=== PATIENT | male | born 1930 | race Caucasian/White ===

== ENCOUNTER → 2016-11-12 | Outpatient (CLI) | payer OTHER, MEDICARE ==
[~2016-11-12] MED LIST: ATOR10TA88 PO; CARV25TA2 PO; CHOLTAB3 PO; DIGO0.1267 PO; FURO40TA3 PO; LSN20 PO; WARF3TAB6 PO; WARF4TAB43 PO; [UNRECOGNIZED DRUG - CODE] PO
--- NOTE | 2016-11-12 10:37 | DIAGNOSTIC IMAGING REPORT ---
CHEST 2 VIEWS ROUTINE CLINICAL HISTORY: COUGH, SCATTERED RHONCHI RT LUNG COMPARISON STUDY: 12/22/2014 FINDINGS: The heart is enlarged. There is a left subclavian pacer/defibrillator present. There is no failure. There is no focal pulmonary consolidation. A nodule at the right lung base is felt to represent nipple shadow. There are no pleural effusions.[ IMPRESSION: Cardiomegaly. No acute findings. Electronically signed by: Tony Adkins M.D. 11/12/2016 10:35 AM Dictated Date/Time: 11/12/2016 10:34 AM
== END | disposition home or self-care (01) ==
LOC: C.RADBBURG 10:26
PROVIDERS: ATTEND Physician Assistant Medical
DX: R05 Cough (principal); R09.89 Other specified symptoms and signs involving the circulatory and respiratory systems; I51.7 Cardiomegaly

== ENCOUNTER → 2017-08-22 | Outpatient (CLI) | payer OTHER, MEDICARE ==
[~2017-08-22] MED LIST changes: +ATOR10TA82 PO; -ATOR10TA88 PO
[2017-08-22 17:30] LABS: BASO % 0.6 %; BASO ABS # 0.03 K/uL (0-0.2); EOS % 2.5 %; EOS ABS # 0.13 K/uL (0-0.5); HEMOGLOBIN 13.2 g/dL (14.0-18.0); IG# 0.01 K/uL (0.00-0.02); LYMPH % 22.1 %; LYMPH ABS # 1.15 K/uL (1.2-3.4); MEAN CELL VOLUME 95.9 fL (80-100); MEAN CORPUSCULAR HEMOGLOBIN 31.7 pg (25-34); MEAN PLATELET VOLUME 11.3 fL (7.4-10.4); MONO ABS # 0.47 K/uL (0.11-0.59); NEUT % 65.6 %; NEUT ABS # 3.41 K/uL (1.4-6.5); PLATELET COUNT 152 K/uL (130-400); RED CELL DISTRIBUTION WIDTH CV 13.1 % (11.5-14.5); RED CELL DISTRIBUTION WIDTH SD 45.6 fL (36.4-46.3)
[2017-08-22 18:57] LABS: ALBUMIN 4.1 gm/dl (3.4-5.0); ALT/SGPT 33 U/L (12-78); AST/SGOT 29 U/L (15-37); BLOOD UREA NITROGEN 33 mg/dl (7-18); CALCIUM 9.6 mg/dl (8.5-10.1); CARBON DIOXIDE 31 mmol/L (21-32); CREATININE 1.56 mg/dl (0.60-1.40); GLUCOSE 92 mg/dl (70-99); POTASSIUM 4.4 mmol/L (3.5-5.1); SODIUM 138 mmol/L (136-145)
[2017-08-22 19:08] LABS: ALKALINE PHOSPHATASE 115 U/L (45-117); TOTAL PROTEIN 7.6 gm/dl (6.4-8.2)
== END | disposition home or self-care (01) ==
LOC: C.LABBC 15:05
PROVIDERS: ATTEND Internal Medicine
DX: I25.10 Atherosclerotic heart disease of native coronary artery without angina pectoris (principal); I42.9 Cardiomyopathy, unspecified; E78.5 Hyperlipidemia, unspecified; G31.84 Mild cognitive impairment of uncertain or unknown etiology; I10 Essential (primary) hypertension; Z79.01 Long term (current) use of anticoagulants; Z95.810 Presence of automatic (implantable) cardiac defibrillator; E55.9 Vitamin D deficiency, unspecified; D64.9 Anemia, unspecified

== ENCOUNTER → 2017-10-24 | Outpatient (CLI) | payer OTHER, MEDICARE ==
--- NOTE | 2017-10-24 18:13 | DIAGNOSTIC IMAGING REPORT ---
HEAD WITHOUT CONTRAST (CT) CLINICAL HISTORY: 87 years-old Male with N18.3 Chronic kidney disease, stage III (moderate)R41.3 Memory l. Acute infusion status post fall TECHNIQUE: Multiple axial CT images of the head were obtained without contrast. A dose lowering technique was utilized adhering to the principles of ALARA. CT DOSE: 537.48 mGy.cm COMPARISON: None. FINDINGS: No acute intracranial hemorrhage, midline shift, intracranial mass, hydrocephalus, territorial ischemia or abnormal extra-axial collection. Moderate cerebral and cerebellar atrophy with ex vacuo ventriculomegaly. Encephalomalacia of the left periventricular frontal lobe and basal ganglia with compensatory dilation of the frontal horn left lateral ventricle is compatible with remote infarction. Moderate ill-defined low-attenuation within the periventricular white matter is compatible with chronic microvascular ischemic changes. The calvarium is intact. The paranasal sinuses, mastoid air cells, and middle ear cavities are clear. Thinning of the optic lenses bilaterally. IMPRESSION: 1. No acute intracranial abnormality. 2. Encephalomalacia of the left periventricular frontal lobe and basal ganglia with compensatory dilation of the frontal horn left lateral ventricle is compatible with remote infarction. 3. Moderate atrophy with chronic microvascular ischemic changes The above report was generated using voice recognition software. It may contain grammatical, syntax or spelling errors. Electronically signed by: Guillermo Wilkins M.D. 10/24/2017 6:11 PM Dictated Date/Time: 10/24/2017 6:08 PM
[2017-10-24 18:19] LABS: BASO % 0.3 %; BASO ABS # 0.02 K/uL (0-0.2); EOS % 4.1 %; EOS ABS # 0.24 K/uL (0-0.5); HEMATOCRIT 38.5 % (42-52); HEMOGLOBIN 13.1 g/dL (14.0-18.0); IG# 0.01 K/uL (0.00-0.02); LYMPH % 18.9 %; MEAN CELL VOLUME 94.8 fL (80-100); MEAN CORPUSCULAR HEMOGLOBIN 32.3 pg (25-34); MEAN PLATELET VOLUME 10.4 fL (7.4-10.4); MONO % 11.9 %; MONO ABS # 0.69 K/uL (0.11-0.59); NEUT % 64.6 %; NEUT ABS # 3.76 K/uL (1.4-6.5); PLATELET COUNT 150 K/uL (130-400); WHITE BLOOD COUNT 5.82 K/uL (4.8-10.8)
[2017-10-24 18:47] LABS: ALT/SGPT 34 U/L (12-78); BLOOD UREA NITROGEN 40 mg/dl (7-18); CALCIUM 9.4 mg/dl (8.5-10.1); CARBON DIOXIDE 34 mmol/L (21-32); CREATININE 1.47 mg/dl (0.60-1.40); GLUCOSE 115 mg/dl (70-99); SODIUM 141 mmol/L (136-145)
[2017-10-24 20:33] LABS: TOTAL PROTEIN 7.3 gm/dl (6.4-8.2)
[2017-10-24 20:34] LABS: ALKALINE PHOSPHATASE 124 U/L (45-117); AST/SGOT 27 U/L (15-37)
== END | disposition home or self-care (01) ==
LOC: C.CTS 17:46
PROVIDERS: ATTEND Internal Medicine
DX: F44.89 Other dissociative and conversion disorders (principal); N18.3 Chronic kidney disease, stage 3 (moderate); R41.3 Other amnesia; Z86.73 Personal history of transient ischemic attack (TIA), and cerebral infarction without residual deficits; G93.89 Other specified disorders of brain; G31.9 Degenerative disease of nervous system, unspecified

== ENCOUNTER 2019-01-06 10:26 | Inpatient (IN) ==
[2019-01-06] MEDS ORDERED: ACETAMINOPHEN 500 MG TAB PO STA (11:17)
[2019-01-06] MEDS ORDERED: SODIUM CHLORIDE 0.9% 1000ML 1,000 ML IV SCH (11:30)
--- NOTE | 2019-01-06 11:43 | XRay Report ---
XR chest 1V portable HISTORY: cough, fall, weakness COMPARISON: Chest 11/30/2018. FINDINGS: No pneumothorax. No pleural effusions. The cardiac silhouette remains moderately enlarged. Left-sided pacemaker/defibrillator. Linear density at the left lung base favor subsegmental atelectas is or scarring. The lungs are otherwise clear. IMPRESSION: No significant change compared to the prior study. No acute process. Stable cardiomegaly. Electronically signed by: Abel Polo M.D. 01/06/2019 11:42 AM
[2019-01-06 12:07] LABS: Basophils # (auto) 0.01 K/uL (0-0.2); Basophils % (auto) 0.1 %; Eosinophils # (auto) 0.04 K/uL (0-0.5); Eosinophils % (auto) 0.5 %; Hematocrit (blood only) 33.5 % (42-52); Hemoglobin 11.8 g/dL (14.0-18.0); Immature Granulocytes # (auto) 0.02 K/uL (0.00-0.02); Immature Granulocytes % (auto) 0.2 %; Lymphocytes # (auto) 0.64 K/uL (1.2-3.4); Lymphocytes % (auto) 7.7 %; Mean Corpuscular Hgb Conc 35.2 g/dL (32-36); Mean Corpuscular Volume 92.3 fL (80-100); Mean Platelet Volume 10.8 fL (7.4-10.4); Monocytes # (auto) 0.66 K/uL (0.11-0.59); Monocytes % (auto) 7.9 %; Neutrophils # (auto) 6.99 K/uL (1.4-6.5); Neutrophils % (auto) 83.6 %; Platelet Count 130 K/uL (130-400); RDW Coefficient of Variation 13.3 % (11.5-14.5); RDW Standard Deviation 45.1 fL (36.4-46.3); Red Blood Count 3.63 M/uL (4.7-6.1); White Blood Count 8.36 K/uL (4.8-10.8)
[2019-01-06 12:28] LABS: BUN Creatinine Ratio 25.2 (10-20); Calcium 9.9 mg/dl (8.5-10.1); Creatinine Clr Calc Pharmacy 18.5 ml/min; Est GFR (African American) 21.2; Est GFR (Non-African American) 18.3; Magnesium 2.3 mg/dl (1.8-2.4); Potassium 4.7 mmol/L (3.5-5.1)
[2019-01-06 12:34] LABS: INR 3.5 (0.9-1.1); Prothrombin Time 32.4 Seconds (9.0-12.0)
--- NOTE | 2019-01-06 12:39 | CT Scan Report ---
CT head/brain wo con CT DOSE: HISTORY: Trauma fall, CHI, INR TECHNIQUE: Multiaxial CT images of the head were performed without the use of intravenous contrast. A dose lowering technique was utilized adhering to the principles of ALARA. Comparison: None. Findings: The paranasal sinuses and mastoid air cells are clear. The calvarium and skull base are int act. The ventricles and sulci are within normal limits. There is no mass, hematoma, midline shift, or acute infarct. 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 Atrophy and chronic small vessel change are stable. No acute intracranial hemorrhage. Impression: Chronic change. No acute process. The above report was generated using voice recognition software. It may contain grammatical, syntax or spelling errors. Electronically signed by: Russel Bach M.D. 01/06/2019 12:38 PM
[2019-01-06 12:43] LABS: Albumin Globulin Ratio 1.4 (0.9-2); Bilirubin,Total 1.5 mg/dl (0.2-1); Globulin 2.9 gm/dl (2.5-4.0); Total Protein 6.9 gm/dl (6.4-8.2); Troponin I 0.081 ng/ml (0-0.045)
--- NOTE | 2019-01-06 12:43 | CT Scan Report ---
CT lumbar spine wo con CT DOSE: HISTORY: Trauma. Pain. fall, midline pain TECHNIQUE: Multiaxial CT images of the lumbar spine were performed and reformatted in the sagittal an d coronal plane without the use of contrast. A dose lowering technique was utilized adhering to the principles of ALARA. COMPARISON: None. FINDINGS: Generalized degenerative change. Vacuum discs at L4-5 and L5-S1. No evidence for an acute compression deformity. Degenerative change posterior elements. No evidence for subluxation. Osteoporosis. IMPRESSION: Generalized degenerative change. Osteoporosis. No acute bony abnormality. The above report was generated using voice recognition software. It may contain grammatical, syntax or spelling errors. Electronically signed by: Russel Bach M.D. 01/06/2019 12:42 PM
--- NOTE | 2019-01-06 12:47 | CT Scan Report ---
CT pelvis wo con CT DOSE: 1614.62 mGy.cm CLINICAL HISTORY: Pelvic pain status post trauma TECHNIQUE: Helical images were acquired in the transverse plane. Coronal reformatted images were acqu ired. A dose lowering technique was utilized adhering to the principles of ALARA. COMPARISON STUDY: None. FINDINGS: There is prostamegaly. 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 There is no SI joint diastases. No hip fractures or dislocations are visualized. There are mild arthr itic changes within the hips. IMPRESSION: No acute fractures identified. Electronically signed by: Tony Adkins M.D. 01/06/2019 12:45 PM
[2019-01-06] MEDS ORDERED: DOCUSATE SODIUM 100 MG CAP PO PRN (16:41)
[2019-01-06 17:44] LABS: Phosphorus 3.4 mg/dl (2.5-4.9)
[2019-01-06] MEDS: SODIUM CHLORIDE 0.9% 1000ML 1,000 ML IV SCH (17:46)
--- NOTE | 2019-01-06 18:13 | Emergency Department Note ---
Entered by Lang Nunn acting as a scribe for Ryan Herzog MD ED Provider Note CHIEF COMPLAINT: Lower back/buttock pain HISTORY OF PRESENT ILLNESS: The patient is a 88 year old male who presents to the Emergency Room with complaints of pain in lower back and buttock following a fall. The patient stated he fell once yesterday after exiting the car and then once again this morning prior to arrival. During the fall the patient notes he hit his head both times and injured his right buttocks. He states that he lost his balance which resulted in the fall. The patient reports that the patients strength has been on the decline and he has been noticeably less stable lately which has resulted in falling more regularly. She also noted that the patient has lost weight during this time though eating is not an issue for the patient. Pt denies LOC, headache, fevers, chills, diaphoresis, visual changes, neck pain, chest pain, breathing difficulties, nausea, vomiting, abdominal pain, melena, hematochezia, urinary symptoms, numbness, lymphadenopathy, rash, or other complaints. REVIEW OF SYSTEMS: See HPI for pertinent positives and negatives. A total of ten systems were reviewed and were otherwise negative. PMHx/PSHx: Pacemaker, Stroke, A-fib, hyperlipidemia, anemia, CHF SOCIAL HISTORY: Patient lives at home. PHYSICAL EXAM: GENERAL: Awake, alert, uncomfortable appearing, in no distress HENT: Normocephalic, atraumatic. Oropharynx unremarkable. EYES: PERRL. Normal conjunctiva. Sclera non-icteric. NECK: Inspection normal. Non-tender. Supple. No nuchal rigidity. FROM. No m asses. RESPIRATORY: Clear to auscultation. No wheezes. No rales. Normal respiratory effort. CARDIAC: Normal rate. irregular rhythm. No murmurs. No rubs. Extremities warm and well perfused. Pulses equal. No JVD. GI: Soft, non-distended. No tenderness to palpation. No rebound or guarding. No masses. RECTAL: Deferred. MUSCULOSKELETAL: Atraumatic. Chest examination reveals no tenderness. The back is symmetrical on inspection without obvious abnormality. There is no CVA tenderness to palpation. No joint edema. Right buttock tenderness. Midline lumbar tenderness. LOWER EXTREMITIES: Calves are equal size bilaterally and non-tender. 1+ edema. Chronic venous discoloration. NEURO: Normal sensorium. No sensory or motor deficits noted. SKIN: No rash or jaundice noted. EMERGENCY DEPARTMENT COURSE: 1111: The patient was evaluated in room C10, and a complete history and physical examination were performed. 1400: I consulted with Dr. Merry Martinez, who will evaluate the patient or further management. 1405: I checked on the patient and updated him on his results. I discussed the treatment plan. He verbally agreed and understood. He will be evaluated by Dr. Garcia for further management. MEDICAL DECISION MAKING: Prior records/ancillary studies reviewed. Nursing notes reviewed and agree them. Additional history obtained from family. The patient's history was concerning for weakness and a fall. Differential diagnosis: Etiologies such as fracture, contusion metabolic, infection, hypo/hyperglycemia, electrolyte abnormalities, cardiac sources, intracerebral event, toxicologic, neurologic, as well as others were entertained. Physical examination: As above. ER treatment provided: IV Lock Saline hydration Oral Tylenol On reassessment the patient felt better. Diagnostics interpretation by me: ECG: No ischemia The labs revealed a mild anemia on CBC. No leukocytosis. The patient has a slight elevation of his troponin. His INR supra therapeutic at 3.5. Kidney function is very concerning with acute renal failure noted. His creatinine went from 1.6 to 2.9. Imaging studies: CT imaging of the head, lumbar spine and pelvis are negative. The patient is generally weak. He has acute renal failure. He has been urin ating. His blood pressure is mildly low. He has a slight elevation of his troponin and is supratherapeutic INR. Further evaluation and management will be necessary in the hospital. Consultation: A consultation was placed with the hospitalist. The case was discussed and diagnostics were reviewed. The patient was evaluated in the ER for further treatment. IMPRESSION: Acute renal failure, fall, back pain right hip pain evaluated troponin. PLAN: Being evaluated by hospitalist The scribe's documentation has been prepared under my direction and personally reviewed by me in its entirety. I confirm that the note above accurately reflec ts all work, treatment, procedures, and medical decision making performed by me. Impression & Plan Acute renal failure, Fall, Back pain, Acute pain of right hip, Elevated troponin Past Med/Surg History Medical History Pacemaker (Chronic) Cardiac defibrillator in place (Chronic) Stroke (Resolved) A-fib (Chronic) Hyperlipidemia (Chronic) Anemia (Acute) CHF (congestive heart failure) (Acute) Chronic renal disease (Acute) Surgical History History of prostate surgery (Chronic) Social History Preferred Language: Wolof Communication Ability: Effective Pharmacy Scheduler Required: No Beliefs That Will Affect Care: Congregational Congregational Beliefs: Jehova's Witness , Spiritual Spiritual Healthcare Practices: Jehova's Witness and Cultural Cultural Beliefs: Jehova's Witness marital status: Current Living Situation: Spouse Current Living Situation Comment: home with current occupational status: retired Other Information That Helps Us Care for You: No Feels Safe at Home: Yes Safety Concerns: Feels Safe At This Time Smoking Status: Former smoker Tobacco Type: cigarettes Do You Dip or Chew Tobacco: No Second Hand Exposure: No Tobacco Cessation Education Requested by Patient: No Hx Alcohol Use: No Hx Substance Use: No Results & Data Vital Signs Vital Signs - 24 hr 01/06/19 10:47 01/06/19 11:17 01/06/19 12:07 Temperature 36.6 C Temperature Source Oral Sepsis Recent Fever Within 48 Hours No Sepsis New/Unexplained Change in Mental Status No Sepsis Action Taken by Nursing No Action Required Pulse Rate 61 91 H Pulse Rate from SpO2 Sensor 63 Respiratory Rate 20 24 Blood Pressure 88/63 L 115/77 Blood Pressure Mean 71 89 Pulse Oximetry 98 87 L Oxygen Delivery Method Room Air Room Air 01/06/19 12:16 01/06/19 12:33 01/06/19 13:00 Temperature Temperature Source Sepsis Recent Fever Within 48 Hours Sepsis New/Unexplained Change in Mental Status Sepsis Action Taken by Nursing Pulse Rate 70 70 69 Pulse Rate from SpO2 Sensor 70 60 Respiratory Rate 22 12 18 Blood Pressure 121/79 Blood Pressure Mean 93 Pulse Oximetry 98 97 Oxygen Delivery Method 01/06/19 13:30 01/06/19 14:00 01/06/19 14:01 Temperature Temperature Source Sepsis Recent Fever Within 48 Hours Sepsis New/Unexplained Change in Mental Status Sepsis Action Taken by Nursing Pulse Rate 70 90 60 Pulse Rate from SpO2 Sensor 62 66 61 Respiratory Rate 20 19 20 Blood Pressure 125/79 122/79 Blood Pressure Mean 94 93 Pulse Oximetry 93 92 98 Oxygen Delivery Method 01/06/19 14:30 Temperature Temperature Source Sepsis Recent Fever Within 48 Hours Sepsis New/Unexplained Change in Mental Status Sepsis Action Taken by Nursing Pulse Rate 72 Pulse Rate from SpO2 Sensor 61 Respiratory Rate 18 Blood Pressure 111/68 Blood Pressure Mean 82 Pulse Oximetry 86 L Oxygen Delivery Method Home Medications Current Medication List: was personally reviewed by me Laboratory Data Attestation: I reviewed the patient's lab results. Result diagrams: 01/06/19 11:53 01/06/19 11:53 Lab Results 01/06/19 01/06/19 01/06/19 Range/Units 11:53 11:53 11:53 WBC 8.36 (4.8-10.8) K/uL RBC 3.63 L (4.7-6.1) M/uL Hgb 11.8 L (14.0-18.0) g/dL Hct 33.5 L (42-52) % MCV 92.3 (80-100) fL MCH 32.5 (25-34) pg MCHC 35.2 (32-36) g/dL RDW Std Deviation 45.1 (36.4-46.3) fL RDW Coeff of Lew 13.3 (11.5-14.5) % Plt Count 130 (130-400) K/uL MPV 10.8 H (7.4-10.4) fL Immature Gran % (Auto) 0.2 % Neut % (Auto) 83.6 % Lymph % (Auto) 7.7 % [place] % (Auto) 7.9 % Eos % (Auto) 0.5 % Baso % (Auto) 0.1 % Immature Gran # (Auto) 0.02 (0.00-0.02) K/uL Neut # (Auto) 6.99 H (1.4-6.5) K/uL Lymph # (Auto) 0.64 L (1.2-3.4) K/uL [place] # (Auto) 0.66 H (0.11-0.59) K/uL Eos # (Auto) 0.04 (0-0.5) K/uL Baso # (Auto) 0.01 (0-0.2) K/uL PT 32.4 H (9.0-12.0) Seconds INR 3.5 H (0.9-1.1) Sodium 139 (136-145) mmol/L Potassium 4.7 (3.5-5.1) mmol/L Chloride 100 (98-107) mmol/L Carbon Dioxide 30 (21-32) mmol/L Anion Gap 8.0 (3-11) BUN 73 H (7-18) mg/dl Creatinine 2.91 H (0.6-1.4) mg/dl Est Cr Clr Drug Dosing 18.5 ml/min Est GFR ( Amer) 21.2 Est GFR (Non-Af Amer) 18.3 BUN/Creatinine Ratio 25.2 H (10-20) Glucose 88 (70-99) mg/dl Calcium 9.9 (8.5-10.1) mg/dl Magnesium 2.3 (1.8-2.4) mg/dl Total Bilirubin 1.5 H (0.2-1) mg/dl AST 29 (15-37) U/L ALT 30 (12-78) U/L Alkaline Phosphatase 140 H (45-117) U/L Troponin I 0.081 H* (0-0.045) ng/ml Total Protein 6.9 (6.4-8.2) gm/dl Albumin 4.0 (3.4-5.0) gm/dl Globulin 2.9 (2.5-4.0) gm/dl Albumin/Globulin Ratio 1.4 (0.9-2) TSH 2.620 (0.300-4.500) uIu/ml Administered Medications Sodium Chloride (Nss 1000ml) 1,000 mls @ 80 mls/hr IV .[id number] [facility] Stop: 01/07/19 17:40 Last Admin: 01/06/19 17:46 Dose: 80 mls/hr Documented by: [id number] Discontinued Medications Acetaminophen (Tylenol) 1,000 mg PO NOW STA Stop: 01/06/19 11:18 Last Admin: 01/06/19 12:15 Dose: 1,000 mg Documented by: [id number] Sodium Chloride (Nss 1000ml) 1,000 mls @ 125 mls/hr IV .Q8H NATALYA Stop: 02/05/19 11:29 Last Infusion: 01/06/19 17:10 Dose: 0 mls/hr Documented by: [id number] Admin: 01/06/19 12:15 Dose: 125 mls/hr Documented by: [id number] Imaging Data Radiologist's Impression: Radiology results as stated below per my review and the radiologist's interpretation: CT head/brain wo con CT DOSE: HISTORY: Trauma fall, CHI, INR TECHNIQUE: Multiaxial CT images of the head were performed without the use of intravenous contrast. A dose lowering technique was utilized adhering to the principles of ALARA. Comparison: None. Findings: The paranasal sinuses and mastoid air cells are clear. The calvarium and skull base are intact. The ventricles and sulci are within normal limits. There is no mass, hematoma, midline shift, or acute infarct. 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 Atrophy and chronic small vessel change are stable. No acute intracranial hemorrhage. Impression: Chronic change. No acute process. The above report was generated using voice recognition software. It may contain grammatical, syntax or spelling errors. Electronically signed by: Russel Bach M.D. 01/06/2019 12:[address] lumbar spine wo con CT DOSE: HISTORY: Trauma. Pain. fall, midline pain TECHNIQUE: Multiaxial CT images of the lumbar spine were performed and reformatted in the sagittal and coronal plane without the use of contrast. A dose lowering technique was utilized adhering to the principles of ALARA. COMPARISON: None. FINDINGS: Generalized degenerative change. Vacuum discs at L4-5 and L5-S1. No evidence for an acute compression deformity. Degenerative change posterior elements. No evidence for subluxation. Osteoporosis. IMPRESSION: Generalized degenerative change. Osteoporosis. No acute bony abnormality. The above report was generated using voice recognition software. It may contain grammatical, syntax or spelling errors. Electronically signed by: Russel Bach M.D. 01/06/2019 12:[address] pelvis wo con CT DOSE: 1614.62 mGy.cm CLINICAL HISTORY: Pelvic pain status post trauma TECHNIQUE: Helical images were acquired in the transverse plane. Coronal reformatted images were acquired. A dose lowering technique was utilized adhering to the principles of ALARA. COMPARISON STUDY: None. FINDINGS: There is prostamegaly. 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 There is no SI joint diastases. No hip fractures or dislocations are visualized. There are mild arthritic changes within the hips. IMPRESSION: No acute fractures identified. Electronically signed by: Tony Adkins M.D. 01/06/2019 12:45 PM XR chest 1V portable HISTORY: cough, fall, weakness COMPARISON: Chest 11/30/2018. FINDINGS: No pneumothorax. No pleural effusions. The cardiac silhouette remains moderately enlarged. Left-sided pacemaker/defibrillator. Linear density at the left lung base favor subsegmental atelectasis or scarring. The lungs are otherwise clear. IMPRESSION: No significant change compared to the prior study. No acute process. Stable cardiomegaly. Electronically signed by: Abel Polo M.D. 01/06/2019 11:42 AM ECG Data Attestation: I personally reviewed and interpreted this ECG as follows: Indication: weakness Rate (beats per minute): 61 Rhythm: other (paced rhythm) Findings: no PAC, no PVC, no ST depression and no ST elevation Comparison ECG Date: no prior available Blood Pressure Blood Pressure Findings: Normal blood pressure Discharge Plan Visit Data *Final* Discharge Date/Time: 01/06/19 16:20 Chief Complaint: Fall Stated Complaint: FALL,LOWER BACK PAIN ED Provider: Ryan Herzog Discharge Problem: Acute renal failure, Fall, Back pain, Acute pain of right hip, Elevated troponin Patient Disposition: Admitted As Inpatient Discharge Instructions Interventions: ED Discharge Assessment Last Done: 01/06/19 16:20 Discharge Problem: Acute renal failure Qualifiers: Acute renal failure type: unspecified Qualified Code(s): N17.9 - Acute kidney failure, unspecified Fall Qualifiers: Encounter type: initial encounter Qualified Code(s): W19.XXXA - Unspecified fall, initial encounter Back pain Qualifiers: Back pain location: low back pain Chronicity: acute Back pain laterality: midline Sciatica presence: without sciatica Qualified Code(s): M54.5 - Low back pain The scribe's documentation has been prepared under my direction and personally reviewed by me in its entirety. I confirm that the note above accurately reflects all work, treatment, procedures, and medical decision making performed by me.
--- NOTE | 2019-01-06 20:04 | History & Physical Report ---
Date of Service January 06, 2019 Assessment & Plan (1) Fall: Patient with gait disturbance over the last few months, acutely worsening over the last few days. S/p multiple falls at home. CT head negative for acute intracranial process, no evidence of NPH -Admit to medical floor -Fall precautions -PT/OT assessment -NSS at 80mL/hr x 2 liters -Check Orthostatic VS x 1 -Tylenol PRN pain Present on Admission?: Yes (2) Acute renal failure: Elevated BUN and Cr, 73 and 2.91 respectively. Patient with normal UOP. Electrolytes and metabolic profile normal. -Avoid nephrotoxic agents -Renal dosing where needed -Hold Lisinopril for now, states that they are concerned that patient's dry cough is from Lisinopril and there are plans to change him to another agent -Hold Lasix -IVF as above -Monitor BUN, Cr, electrolytes and UOP Present on Admission?: Yes (3) Elevated troponin: Mildly elevated troponin. No EKG evidence of acute ischemia. Patient without chest pain. Most likely secondary to KERON -Continue Atorvastatin, Carvedilol -Trend troponin Present on Admission?: Yes (4) A-fib: Patient V-paced. On Coumadin anticoagulation with INR of 3.5. On digoxin, level=3.5 -Hold Coumadin -Neuro checks q shift -INR with AM labs -Hold digoxin for now (5) Hyperlipidemia: Chronic. Stable -Continue Atorvastatin Present on Admission?: Yes (6) Anemia: Normochromic/normocytic. No active bleeding -Continue to monitor CBC Present on Admission?: Yes (7) Chronic renal disease: KERON as above Present on Admission?: Yes (8) CHF (congestive heart failure): Patient hemodynamically stable. Appears euvolemic on exam -Continue Carvedilol -Holding Lisinopril and Digoxin F/E/N - IVF as above, monitor BMP and electrolytes and replete as needed, Regular diet as tolerated Ppx - Anticoagulated on Coumadin Code - FULL Dispo - Admit to medical floor Present on Admission?: Yes History of Present Illness Chief Complaint: FALL Primary Care Provider: Ismael Villagran MD Mr. Ramos is an 88yo C male with history of prior CVA, AF on Coumadin anticoagulation, HLP, CKD and CHF. Patient lost his balance in his home yesterday and fell getting up. He fell again later yesterday with walking. He states that he becomes dizzy and falls. Denies chest pain, palpitations, loss of consciousness or head trauma. Patient has had ambulatory dysfunction with gait disturbance for the last few months which acutely worsened in the last few days. He is to have PT for gait disturbance outpatient. Patient with elevated Cr here to 2.9. Unable to ambulate secondary to pain Also complains of urinary incontinence and diffuse weakness Allergies Allergy/AdvReac Type Severity Reaction Status Date / Time No Known Allergies Allergy Verified 01/06/19 12:07 Home Medications Home Medications Medication Instructions Recorded Confirmed Type atorvastatin [Lipitor] 10 mg PO HS 11/30/18 01/06/19 History carvedilol [Coreg] 12.5 mg PO BID 11/30/18 01/06/19 History cholecalciferol (vitamin D3) 1,000 unit PO DAILY 11/30/18 01/06/19 History [Vitamin D3] digoxin [Digitek] 125 mcg PO DAILY 11/30/18 01/06/19 History escitalopram oxalate [Lexapro] 20 mg PO HS 11/30/18 01/06/19 History furosemide [Lasix] 40 mg PO DAILY 11/30/18 01/06/19 History lisinopril 5 mg PO DAILY 11/30/18 01/06/19 History memantine [Namenda XR] 28 mg PO HS 11/30/18 01/06/19 History multivitamin 1 tab PO QAM 11/30/18 01/06/19 History vitamin B complex 1 tab PO DAILY 11/30/18 01/06/19 History warfarin [Coumadin] 2 mg PO QPM 11/30/18 01/06/19 History cyclosporine [Restasis] 1 drp OPB BID 01/06/19 01/06/19 History Past Med/Surg History Medical History Pacemaker (Chronic) Cardiac defibrillator in place (Chronic) Stroke (Resolved) A-fib (Chronic) Hyperlipidemia (Chronic) Anemia (Acute) CHF (congestive heart failure) (Acute) Chronic renal disease (Acute) Cognitive impairment Surgical History History of prostate surgery (Chronic) S/P cataract surgery Social History (Reviewed 01/06/19 @ 16:11 by Lang Whiteside Preferred Language: Polish Communication Ability: Effective Plumber Required: No Beliefs That Will Affect Care: Sikh Sikh Beliefs: Jehova's Witness , Spiritual Spiritual Healthcare Practices: Jehova's Witness and Cultural Cultural Beliefs: Rhianna's Witness marital status: Current Living Situation: Spouse Current Living Situation Comment: home with current occupational status: retired Other Information That Helps Us Care for You: No Feels Safe at Home: Yes Safety Concerns: Feels Safe At This Time Smoking Status: Former smoker Tobacco Type: cigarettes Do You Dip or Chew Tobacco: No Second Hand Exposure: No Tobacco Cessation Education Requested by Patient: No Hx Alcohol Use: No Hx Substance Use: No Review of Systems Review of Systems: All systems reviewed & are unremarkable except as noted in HPI & below Patient endorses a dry cough Physical Exam Physical Exam: General: patient resting comfortably, NAD, non-toxic in appearance, AA&O x 4 Skin: warm, dry, intact, no rashes or lesions HEENT: NC/AT, PERRL, EOMI, anicteric sclera, conjunctiva without injection, external ear normal to inspection and nontender, hearing aides in place, nares patent, moist mucus membranes, upper dentures in place, no oropharyngeal lesions, neck supple, trachea midline, no LAD, no thyromegaly, no JVD Heart: +S1/S2, regular, no m/r/g Lungs: equal air entry bilaterally, no rales/rhonchi/wheezes Abd: +BS, soft, NT/ND, no masses/organomegaly/ascites Ext: warm, 2+ pulses in UE/LE bilaterally, no clubbing/cyanosis or edema Neuro: nonfocal, patient AA&O x 4, speech intact, no facial droop, moving all extremities on command with equal strength 5/5 Results & Data Vital Signs (Past 12 Hours) Vital Signs Temp Pulse Pulse Resp BP BP Pulse Ox 01/06/19 17:11 36.4 C L 60 20 118/76 97 01/06/19 17:05 36.4 C L 68 19 118/76 97 01/06/19 14:30 72 18 111/68 86 L 01/06/19 14:01 60 20 122/79 98 01/06/19 14:00 90 19 92 01/06/19 13:30 70 20 125/79 93 01/06/19 13:00 69 18 121/79 97 01/06/19 12:33 70 12 01/06/19 12:16 70 22 98 01/06/19 12:07 91 H 24 115/77 87 L 01/06/19 10:47 36.6 C 61 20 88/63 L 98 Laboratory Results Lab Results 01/06/19 01/06/19 01/06/19 Range/Units 11:53 11:53 11:53 WBC 8.36 (4.8-10.8) K/uL RBC 3.63 L (4.7-6.1) M/uL Hgb 11.8 L (14.0-18.0) g/dL Hct 33.5 L (42-52) % MCV 92.3 (80-100) fL MCH 32.5 (25-34) pg MCHC 35.2 (32-36) g/dL RDW Std Deviation 45.1 (36.4-46.3) fL RDW Coeff of Lew 13.3 (11.5-14.5) % Plt Count 130 (130-400) K/uL MPV 10.8 H (7.4-10.4) fL Immature Gran % (Auto) 0.2 % Neut % (Auto) 83.6 % Lymph % (Auto) 7.7 % [place] % (Auto) 7.9 % Eos % (Auto) 0.5 % Baso % (Auto) 0.1 % Immature Gran # (Auto) 0.02 (0.00-0.02) K/uL Neut # (Auto) 6.99 H (1.4-6.5) K/uL Lymph # (Auto) 0.64 L (1.2-3.4) K/uL [place] # (Auto) 0.66 H (0.11-0.59) K/uL Eos # (Auto) 0.04 (0-0.5) K/uL Baso # (Auto) 0.01 (0-0.2) K/uL PT 32.4 H (9.0-12.0) Seconds INR 3.5 H (0.9-1.1) Sodium 139 (136-145) mmol/L Potassium 4.7 (3.5-5.1) mmol/L Chloride 100 (98-107) mmol/L Carbon Dioxide 30 (21-32) mmol/L Anion Gap 8.0 (3-11) BUN 73 H (7-18) mg/dl Creatinine 2.91 H (0.6-1.4) mg/dl Est Cr Clr Drug Dosing 18.5 ml/min Est GFR ( Amer) 21.2 Est GFR (Non-Af Amer) 18.3 BUN/Creatinine Ratio 25.2 H (10-20) Glucose 88 (70-99) mg/dl Calcium 9.9 (8.5-10.1) mg/dl Phosphorus (2.5-4.9) mg/dl Magnesium 2.3 (1.8-2.4) mg/dl Total Bilirubin 1.5 H (0.2-1) mg/dl AST 29 (15-37) U/L ALT 30 (12-78) U/L Alkaline Phosphatase 140 H (45-117) U/L Total Creatine Kinase (39-308) U/L Troponin I 0.081 H* (0-0.045) ng/ml Total Protein 6.9 (6.4-8.2) gm/dl Albumin 4.0 (3.4-5.0) gm/dl Globulin 2.9 (2.5-4.0) gm/dl Albumin/Globulin Ratio 1.4 (0.9-2) TSH 2.620 (0.300-4.500) uIu/ml Digoxin (0.8-2.0) ng/ml 01/06/19 01/06/19 Range/Units 17:11 17:11 WBC (4.8-10.8) K/uL RBC (4.7-6.1) M/uL Hgb (14.0-18.0) g/dL Hct (42-52) % MCV (80-100) fL MCH (25-34) pg MCHC (32-36) g/dL RDW Std Deviation (36.4-46.3) fL RDW Coeff of Lew (11.5-14.5) % Plt Count (130-400) K/uL MPV (7.4-10.4) fL Immature Gran % (Auto) % Neut % (Auto) % Lymph % (Auto) % [place] % (Auto) % Eos % (Auto) % Baso % (Auto) % Immature Gran # (Auto) (0.00-0.02) K/uL Neut # (Auto) (1.4-6.5) K/uL Lymph # (Auto) (1.2-3.4) K/uL [place] # (Auto) (0.11-0.59) K/uL Eos # (Auto) (0-0.5) K/uL Baso # (Auto) (0-0.2) K/uL PT (9.0-12.0) Seconds INR (0.9-1.1) Sodium (136-145) mmol/L Potassium (3.5-5.1) mmol/L Chloride (98-107) mmol/L Carbon Dioxide (21-32) mmol/L Anion Gap (3-11) BUN (7-18) mg/dl Creatinine (0.6-1.4) mg/dl Est Cr Clr Drug Dosing ml/min Est GFR ( Amer) Est GFR (Non-Af Amer) BUN/Creatinine Ratio (10-20) Glucose (70-99) mg/dl Calcium (8.5-10.1) mg/dl Phosphorus 3.4 (2.5-4.9) mg/dl Magnesium (1.8-2.4) mg/dl Total Bilirubin (0.2-1) mg/dl AST (15-37) U/L ALT (12-78) U/L Alkaline Phosphatase (45-117) U/L Total Creatine Kinase 190 (39-308) U/L Troponin I (0-0.045) ng/ml Total Protein (6.4-8.2) gm/dl Albumin (3.4-5.0) gm/dl Globulin (2.5-4.0) gm/dl Albumin/Globulin Ratio (0.9-2) TSH (0.300-4.500) uIu/ml Digoxin 2.5 H (0.8-2.0) ng/ml Diagnostic Findings XR chest 1V portable HISTORY: cough, fall, weakness COMPARISON: Chest 11/30/2018. FINDINGS: No pneumothorax. No pleural effusions. The cardiac silhouette remains moderately enlarged. Left-sided pacemaker/defibrillator. Linear density at the left lung base favor subsegmental atelectasis or scarring. The lungs are otherwise clear. IMPRESSION: No significant change compared to the prior study. No acute process. Stable cardiomegaly. Electronically signed by: Abel Polo M.D. 01/06/2019 11:42 AM Dictated: 01/06/191138 Transcribed: 01/06/191138 CT pelvis wo con CT DOSE: 1614.62 mGy.cm CLINICAL HISTORY: Pelvic pain status post trauma TECHNIQUE: Helical images were acquired in the transverse plane. Coronal reformatted images were acquired. A dose lowering technique was utilized adh ering to the principles of ALARA. COMPARISON STUDY: None. FINDINGS: There is prostamegaly. 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 There is no SI joint diastases. No hip fractures or dislocations are visualized. There are mild arthritic changes within the hips. IMPRESSION: No acute fractures identified. Electronically signed by: Tony Adkins M.D. 01/06/2019 12:[address] lumbar spine wo con CT DOSE: HISTORY: Trauma. Pain. fall, midline pain TECHNIQUE: Multiaxial CT images of the lumbar spine were performed and reformatted in the sagittal and coronal plane without the use of contrast. A dose lowering technique was utilized adhering to the principles of ALARA. COMPARISON: None. FINDINGS: Generalized degenerative change. Vacuum discs at L4-5 and L5-S1. No evidence for an acute compression deformity. Degenerative change posterior elements. No evidence for subluxation. Osteoporosis. IMPRESSION: Generalized degenerative change. Osteoporosis. No acute bony abnormality. The above report was generated using voice recognition software. It may contain grammatical, syntax or spelling errors. Electronically signed by: Russel Bach M.D. 01/06/2019 12:42 PM Dictated: 01/06/19 1238 Transcribed: 01/06/[address] head/brain wo con CT DOSE: HISTORY: Trauma fall, [facility], INR TECHNIQUE: Multiaxial CT images of the head were performed without the use of intravenous contrast. A dose lowering technique was utilized adhering to the principles of ALARA. Comparison: None. Findings: The paranasal sinuses and mastoid air cells are clear. The calvarium and skull base are intact. The ventricles and sulci are within normal limits. There is no mass, hematoma, midline shift, or acute infarct. 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 Atrophy and chronic small vessel change are stable. No acute intracranial hemorrhage. Impression: Chronic change. No acute process. The above report was generated using voice recognition software. It may contain grammatical, syntax or spelling errors. Electronically signed by: Russel Bach M.D. 01/06/2019 12:38 PM Dictated: 01/06/19 1237 Transcribed: 01/06/19 1237- ECG Additional Comments: V-paced at 61 bpm, no acute ischemic changes Critical Care Time Critical Care Time: No (1) Fall Encounter type: initial encounter Qualified Code(s): W19.XXXA - Unspecified fall, initial encounter (2) Acute renal failure Acute renal failure type: unspecified Qualified Code(s): N17.9 - Acute kidney failure, unspecified (3) A-fib Atrial fibrillation type: unspecified Qualified Code(s): I48.91 - Unspecified atrial fibrillation (4) Hyperlipidemia Hyperlipidemia type: unspecified Qualified Code(s): E78.5 - Hyperlipidemia, unspecified (5) Anemia Anemia type: unspecified type Qualified Code(s): D64.9 - Anemia, unspecified (6) Chronic renal disease Chronic kidney disease stage: unspecified stage Qualified Code(s): N18.9 - Chronic kidney disease, unspecified (7) CHF (congestive heart failure) Heart failure type: unspecified
[2019-01-06] MEDS: ATORVASTATIN 10 MG TAB PO SCH (20:21)
[2019-01-06] MEDS: CARVEDILOL 25 MG TAB PO SCH (20:22)
[2019-01-06] MEDS: ESCITALOPRAM OXALATE 20 MG TAB PO SCH (20:22)
[2019-01-07] MEDS: SODIUM CHLORIDE 0.9% 1000ML 1,000 ML IV SCH (03:57)
[2019-01-07 04:14] LABS: Appearance Urine Clear (Clear); Bilirubin Urine Negative (Negative); Blood Urine Negative (Negative); Color Urine Yellow; Glucose Urine UA Negative (Negative); Ketones Urine Negative (Negative); Leukocyte Esterase Urine Negative (Negative); Nitrite Urine Negative (Negative); Protein Urine Negative (Negative); Specific Gravity Urine 1.014 (1.000-1.030); Urobilinogen Urine Negative (Negative)
[2019-01-07 07:49] LABS: Basophils # (auto) 0.01 K/uL (0-0.2); Basophils % (auto) 0.2 %; Eosinophils # (auto) 0.17 K/uL (0-0.5); Eosinophils % (auto) 2.7 %; Hematocrit (blood only) 31.6 % (42-52); Hemoglobin 10.8 g/dL (14.0-18.0); Immature Granulocytes # (auto) 0.02 K/uL (0.00-0.02); Immature Granulocytes % (auto) 0.3 %; Lymphocytes % (auto) 16.1 %; Mean Corpuscular Hgb Conc 34.2 g/dL (32-36); Mean Corpuscular Volume 93.5 fL (80-100); Monocytes # (auto) 0.42 K/uL (0.11-0.59); Monocytes % (auto) 6.8 %; Neutrophils % (auto) 73.9 %; Platelet Count 120 K/uL (130-400); RDW Coefficient of Variation 13.3 % (11.5-14.5); RDW Standard Deviation 45.4 fL (36.4-46.3); Red Blood Count 3.38 M/uL (4.7-6.1); White Blood Count 6.22 K/uL (4.8-10.8)
[2019-01-07 07:56] LABS: INR 3.3 (0.9-1.1); Prothrombin Time 31.1 Seconds (9.0-12.0)
[2019-01-07] MEDS: CARVEDILOL 25 MG TAB PO SCH ×2 (08:14→21:03)
[2019-01-07 08:26] LABS: Albumin Level 3.3 gm/dl (3.4-5.0); BUN Creatinine Ratio 29.6 (10-20); Bilirubin Direct 0.4 mg/dl (0-0.2); Bilirubin,Total 1.3 mg/dl (0.2-1); Calcium 8.6 mg/dl (8.5-10.1); Creatinine Clr Calc Pharmacy 23.8 ml/min; Est GFR (African American) 28.7; Est GFR (Non-African American) 24.8; Potassium 4.2 mmol/L (3.5-5.1)
[2019-01-07 08:33] LABS: Troponin I 0.059 ng/ml (0-0.045)
[2019-01-07] MEDS ORDERED: DIGOXIN 0.125 MG TAB PO SCH (09:00)
[2019-01-07] MEDS ORDERED: LACTATED RINGER'S 1,000 ML IV SCH (17:00)
[2019-01-07] MEDS: ATORVASTATIN 10 MG TAB PO SCH (21:03)
[2019-01-07] MEDS: ESCITALOPRAM OXALATE 20 MG TAB PO SCH (21:03)
--- NOTE | 2019-01-07 23:05 | Hospitalist Progress Note ---
Date of Service January 07, 2019 Assessment & Plan (1) Fall: It appears that this is likley uremic encephalopathy from acute pre-renal failure Patient with gait disturbance over the last few months, acutely worsening over the last few days. S/p multiple falls at home. CT head negative for acute intracranial process, no evidence of NPH -Admit to medical floor -Fall precautions -PT/OT assessment -will continue IVF and recheck BMP in am. -Check Orthostatic VS x 1 -Tylenol PRN pain (2) Acute renal failure: Elevated BUN and Cr, 73 and 2.91 respectively. Patient with normal UOP. Electrolytes and metabolic profile normal. -Creatinine mildly improved on 01/07 will recheck in AM. -Avoid nephrotoxic agents -Renal dosing where needed -Hold charles-inhibiotr -Hold Lasix -IVF as above -Monitor BUN, Cr, electrolytes and UOP (3) Elevated troponin: Mildly elevated troponin. No EKG evidence of acute ischemia. Patient without chest pain. Most likely secondary to KERON -Continue Atorvastatin, Carvedilol -Trend troponin (4) A-fib: Patient V-paced. On Coumadin anticoagulation with INR of 3.5. On digoxin, level=3.5 -Hold Coumadin -Neuro checks q shift -INR with AM labs -Hold digoxin for now (5) Hyperlipidemia: Chronic. Stable -Continue Atorvastatin (6) Anemia: Normochromic/normocytic. No active bleeding -Continue to monitor CBC (7) Chronic renal disease: KERON as above (8) CHF (congestive heart failure): Patient hemodynamically stable. Appears euvolemic on exam -Continue Carvedilol -Holding Lisinopril and Digoxin F/E/N - IVF as above, monitor BMP and electrolytes and replete as needed, Regular diet as tolerated Ppx - Anticoagulated on Coumadin Code - FULL Spent 25 minutes in management of patient. Subjective 88 yo male reports feeling somehwat better today. He is hard of hearing and it is difficult to attain a history. He reports not having much energy and would like to rest. Patient denies nausea. vomiting, diarrhea. His is not at bedside Review of Systems Review of Systems: All systems reviewed & are unremarkable except as noted in HPI & below Physical Exam Physical Exam: General: patient resting comfortably, NAD, non-toxic in appearance, AA&O x 4 Skin: warm, dry, intact, no rashes or lesions HEENT: NC/AT, PERRL, EOMI, external ear normal to inspection and nontender, hearing aides in place, nares patent, moist mucus membranes, upper dentures in place, no oropharyngeal lesions, neck supple, trachea midline, no LAD, no thyromegaly, no JVD Heart: +S1/S2, regular, no m/r/g Lungs: equal air entry bilaterally, no rales/rhonchi/wheezes Abd: +BS, soft, NT/ND, no masses/organomegaly/ascites Ext: warm, 2+ pulses in UE/LE bilaterally, no clubbing/cyanosis or edema Neuro: nonfocal, patient AA&O x 4, speech intact, no facial droop, moving all extremities on command with equal strength 5/5 Results & Data Vital Signs (Past 12 Hours) Vital Signs Temp Pulse Resp BP Pulse Ox 01/07/19 16:31 36.3 C L 67 18 123/84 98 (1) Acute renal failure Acute renal failure type: unspecified Qualified Code(s): N17.9 - Acute kidney failure, unspecified (2) CHF (congestive heart failure) Heart failure type: unspecified (3) Anemia Anemia type: unspecified type Qualified Code(s): D64.9 - Anemia, unspecified (4) A-fib Atrial fibrillation type: unspecified Qualified Code(s): I48.91 - Unspecified atrial fibrillation (5) Hyperlipidemia Hyperlipidemia type: unspecified Qualified Code(s): E78.5 - Hyperlipidemia, unspecified (6) Chronic renal disease Chronic kidney disease stage: unspecified stage Qualified Code(s): N18.9 - Chronic kidney disease, unspecified (7) Fall Encounter type: initial encounter Qualified Code(s): W19.XXXA - Unspecified fall, initial encounter
[2019-01-08 07:28] LABS: Basophils # (auto) 0.02 K/uL (0-0.2); Basophils % (auto) 0.4 %; Eosinophils # (auto) 0.19 K/uL (0-0.5); Eosinophils % (auto) 3.5 %; Hemoglobin 10.9 g/dL (14.0-18.0); Immature Granulocytes # (auto) 0.02 K/uL (0.00-0.02); Immature Granulocytes % (auto) 0.4 %; Lymphocytes # (auto) 0.98 K/uL (1.2-3.4); Lymphocytes % (auto) 18.1 %; Mean Corpuscular Hgb Conc 35.2 g/dL (32-36); Mean Corpuscular Volume 92.5 fL (80-100); Mean Platelet Volume 10.8 fL (7.4-10.4); Monocytes # (auto) 0.39 K/uL (0.11-0.59); Monocytes % (auto) 7.2 %; Neutrophils # (auto) 3.81 K/uL (1.4-6.5); Neutrophils % (auto) 70.4 %; Platelet Count 114 K/uL (130-400); RDW Coefficient of Variation 13.4 % (11.5-14.5); RDW Standard Deviation 45.4 fL (36.4-46.3); Red Blood Count 3.35 M/uL (4.7-6.1); White Blood Count 5.41 K/uL (4.8-10.8)
[2019-01-08 07:52] LABS: INR 2.7 (0.9-1.1); Prothrombin Time 25.6 Seconds (9.0-12.0)
[2019-01-08 07:59] LABS: BUN Creatinine Ratio 32.8 (10-20); Calcium 8.7 mg/dl (8.5-10.1); Creatinine Clr Calc Pharmacy 32.2 ml/min; Est GFR (African American) 41.4; Est GFR (Non-African American) 35.7; Potassium 4.4 mmol/L (3.5-5.1)
[2019-01-08] MEDS: CARVEDILOL 25 MG TAB PO SCH ×2 (08:09→20:39)
[2019-01-08] MEDS: LACTATED RINGER'S 1,000 ML IV SCH (14:48)
[2019-01-08] MEDS ORDERED: WARFARIN SOD 2 MG TAB PO SCH (16:00)
[2019-01-08] MEDS: ESCITALOPRAM OXALATE 20 MG TAB PO SCH (20:40)
[2019-01-08] MEDS: ATORVASTATIN 10 MG TAB PO SCH (20:40)
--- NOTE | 2019-01-08 22:24 | Hospitalist Progress Note ---
Date of Service January 08, 2019 Assessment & Plan (1) Fall: It appears that this is likley uremic encephalopathy from acute pre-renal failure Patient with gait disturbance over the last few months, acutely worsening over the last few days. S/p multiple falls at home. CT head negative for acute intracranial process, no evidence of NPH -Admit to medical floor -Fall precautions -PT/OT assessment Patient appears to be responding to IVF. Creatinine is better, will continue to monitor. (2) Acute renal failure: Elevated BUN and Cr, 73 and 2.91 respectively. Patient with normal UOP. Electrolytes and metabolic profile normal. -Creatinine continues to improve on 01/08 -Avoid nephrotoxic agents -Renal dosing where needed -Hold charles-inhibiotr -Hold Lasix -IVF as above -Monitor BUN, Cr, electrolytes and UOP (3) Elevated troponin: Mildly elevated troponin. No EKG evidence of acute ischemia. Patient without chest pain. Most likely secondary to KERON -Continue Atorvastatin, Carvedilol -troponin is trending down. Likely demand ischemia from dehydration. (4) A-fib: Patient V-paced. On Coumadin anticoagulation with INR of 3.5. On digoxin, level=3.5 -Hold Coumadin -Neuro checks q shift -INR with AM labs -resumed coumadin. (5) Hyperlipidemia: Chronic. Stable -Continue Atorvastatin (6) Anemia: Normochromic/normocytic. No active bleeding -Continue to monitor CBC (7) Chronic renal disease: CKD stage III KERON as above (8) CHF (congestive heart failure): Patient hemodynamically stable. Patient has h/o systolic cardiomyopathy. Appears euvolemic on exam -Continue Carvedilol -Holding Lisinopril and Digoxin F/E/N - IVF as above, monitor BMP and electrolytes and replete as needed, Regular diet as tolerated Ppx - Anticoagulated on Coumadin Code - FULL Spent 25 minutes in management of patient. Subjective 88 yo male reports feeling better today. his is at bedside, She is updated. He is hard of hearing and it is difficult to attain a history. He reports having more energy today. states that he does not drink enough fluids at home. Patient denies nausea. vomiting, diarrhea. Review of Systems Review of Systems: All systems reviewed & are unremarkable except as noted in HPI & below Physical Exam Physical Exam: General: patient resting comfortably, NAD, non-toxic in appearance, AA&O x 4 Skin: warm, dry, intact, no rashes or lesions HEENT: NC/AT, PERRL, EOMI, external ear normal to inspection and nontender, hearing aides in place, nares patent, moist mucus membranes, upper dentures in place, no oropharyngeal lesions, neck supple, trachea midline, no LAD, no thyromegaly, no JVD Heart: +S1/S2, regular, no m/r/g Lungs: equal air entry bilaterally, no rales/rhonchi/wheezes Abd: +BS, soft, NT/ND, no masses/organomegaly/ascites Ext: warm, 2+ pulses in UE/LE bilaterally, no clubbing/cyanosis or edema Neuro: nonfocal, patient AA&O x 4, speech intact, no facial droop, moving all extremities on command with equal strength 5/5 Results & Data Vital Signs (Past 12 Hours) Vital Signs Temp Pulse Pulse Resp BP BP Pulse Ox 01/08/19 22:02 150/97 H 01/08/19 20:23 73 160/98 H 01/08/19 14:50 36.4 C L 63 18 112/74 99 (1) Acute renal failure Acute renal failure type: unspecified Qualified Code(s): N17.9 - Acute kidney failure, unspecified (2) CHF (congestive heart failure) Heart failure type: unspecified (3) Anemia Anemia type: unspecified type Qualified Code(s): D64.9 - Anemia, unspecified (4) A-fib Atrial fibrillation type: unspecified Qualified Code(s): I48.91 - Unspecified atrial fibrillation (5) Hyperlipidemia Hyperlipidemia type: unspecified Qualified Code(s): E78.5 - Hyperlipidemia, unspecified (6) Chronic renal disease Chronic kidney disease stage: unspecified stage Qualified Code(s): N18.9 - Chronic kidney disease, unspecified (7) Fall Encounter type: initial encounter Qualified Code(s): W19.XXXA - Unspecified fall, initial encounter
[2019-01-09] MEDS: LACTATED RINGER'S 1,000 ML IV SCH (02:42)
[2019-01-09] MEDS: CARVEDILOL 25 MG TAB PO SCH (08:10)
[2019-01-09 10:33] LABS: Albumin Level 3.1 gm/dl (3.4-5.0); BUN Creatinine Ratio 32.8 (10-20); Calcium 8.7 mg/dl (8.5-10.1); Creatinine Clr Calc Pharmacy 42.4 ml/min; Est GFR (African American) 57.7; Est GFR (Non-African American) 49.8
[2019-01-09 10:36] LABS: Albumin Globulin Ratio 1.2 (0.9-2); Bilirubin,Total 1.3 mg/dl (0.2-1); Globulin 2.5 gm/dl (2.5-4.0); Total Protein 5.6 gm/dl (6.4-8.2)
--- NOTE | 2019-01-13 10:07 | Discharge Summary ---
Date of Service January 09, 2019 Admission HPI Per Admitting Provider Mr. Ramos is an 88yo C male with history of prior CVA, AF on Coumadin anticoagulation, HLP, CKD and CHF. Patient lost his balance in his home yesterday and fell getting up. He fell again later yesterday with walking. He states that he becomes dizzy and falls. Denies chest pain, palpitations, loss of consciousness or head trauma. Patient has had ambulatory dysfunction with gait disturbance for the last few months which acutely worsened in the last few days. He is to have PT for gait disturbance outpatient. Patient with elevated Cr here to 2.9. Unable to ambulate secondary to pain Also complains of urinary incontinence and diffuse weakness Principal Diagnosis Acute pre-renal failure Discharge Exam General: patient resting comfortably, NAD, non-toxic in appearance, AA&O x 4 Skin: warm, dry, intact, no rashes or lesions HEENT: NC/AT, PERRL, EOMI, external ear normal to inspection and nontender, hearing aides in place, nares patent, moist mucus membranes, upper dentures in place, no oropharyngeal lesions, neck supple, trachea midline, no LAD, no thyromegaly, no JVD Heart: +S1/S2, regular, no m/r/g Lungs: equal air entry bilaterally, no rales/rhonchi/wheezes Abd: +BS, soft, NT/ND, no masses/organomegaly/ascites Ext: warm, 2+ pulses in UE/LE bilaterally, no clubbing/cyanosis or edema Neuro: nonfocal, patient AA&O x 4, speech intact, no facial droop, moving all extremities on command with equal strength 5/5 Discharge Data Allergies Allergy/AdvReac Type Severity Reaction Status Date / Time No Known Allergies Allergy Verified 01/06/19 12:07 Consultations 01/06/19 13:59 ED Decision to Admit Stat Ordered Studies 01/06/19 11:17 CT head/brain wo con Stat CT lumbar spine wo con Stat CT pelvis wo con Stat Hospital Course (1) Fall: It appears that this is likley uremic encephalopathy from acute pre-renal failure Patient with gait disturbance over the last few months, acutely worsening over the last few days. S/p multiple falls at home. CT head negative for acute intracranial process, no evidence of NPH -Admit to medical floor -Fall precautions -PT/OT assessment Patient appears to be responding to IVF. Creatinine is better, will continue to monitor. On day of discharge: Patient continued to improve. It apperars his symptoms stemmed from dehydration. Patient normally is on lasix. Patient will need to keep close eye on intake and will need to monitor renal status so he does not get overdiuresed. This was explained to his . Restarted lasix but for every other day (2) Acute renal failure: Elevated BUN and Cr, 73 and 2.91 respectively. Patient with normal UOP. Electrolytes and metabolic profile normal. -Creatinine continues to improve on 01/08 -Avoid nephrotoxic agents -Renal dosing where needed -Hold charles-inhibiotr -Hold Lasix -IVF as above -Monitor BUN, Cr, electrolytes and UOP as noted above. (3) Elevated troponin: Mildly elevated troponin. No EKG evidence of acute ischemia. Patient without chest pain. Most likely secondary to KERON -Continue Atorvastatin, Carvedilol -troponin is trending down. Likely demand ischemia from dehydration. (4) A-fib: Patient V-paced. On Coumadin anticoagulation with INR of 3.5. On digoxin, level=3.5 -Hold Coumadin -Neuro checks q shift -INR with AM labs -resumed coumadin. (5) Hyperlipidemia: Chronic. Stable -Continue Atorvastatin (6) Anemia: Normochromic/normocytic. No active bleeding -Continue to monitor CBC (7) Chronic renal disease: CKD stage III KERON as above (8) CHF (congestive heart failure): Patient hemodynamically stable. Patient has h/o systolic cardiomyopathy. Appears euvolemic on exam -Continue Carvedilol -Holding Lisinopril and Digoxin F/E/N - IVF as above, monitor BMP and electrolytes and replete as needed, Regular diet as tolerated Ppx - Anticoagulated on Coumadin Code - FULL Total Time Total Time Spent Total Time Spent (In Minutes): 35 Total Time Includes: Examination of the Patient, Discharge Planning and Medication Reconciliation Discharge Plan Discharge Items Patient Disposition: Transfer Inpatient Rehab Fac Reason For Visit: FALL,KERON Discharge Diagnosis: Fall, acute kidney injury Discharge Goals: Decrease discomfort Activity: Resume your previous activity Non-emergency contact: Primary Care Provider Call non-emergency contact if: you have any medication questions Follow-up/Referrals: Ismael Villagran MD [Primary Care Provider] - Diet: Regular Addtl Provider Instructions: You were found to be dehydrated. You were replenished with fluids. Will need to closely monitor your fluid status Will recommend cutting back on his lasix to 3 times a week And recheck your labs at your next appointment BMP and BNP, INR. Prescriptions: New losartan 25 mg tablet 25 mg PO DAILY Qty: 30 RF: 0 Continued multivitamin Tablet 1 tab PO QAM RF: 0 carvedilol [Coreg] 25 mg tablet 12.5 mg PO BID RF: 0 atorvastatin [Lipitor] 10 mg tablet 10 mg PO HS RF: 0 warfarin [Coumadin] 2 mg tablet 2 mg PO QPM RF: 0 vitamin B complex Tablet 1 tab PO DAILY RF: 0 digoxin [Digitek] 125 mcg tablet 125 mcg PO DAILY RF: 0 cholecalciferol (vitamin D3) [Vitamin D3] 1,000 unit Capsule 1,000 unit PO DAILY RF: 0 escitalopram oxalate [Lexapro] 20 mg tablet 20 mg PO HS RF: 0 memantine [Namenda XR] 28 mg capsule,sprinkle,ER 24hr 28 mg PO HS RF: 0 Restasis 0.05 % dropperette 1 drp OPB BID RF: 0 Changed furosemide [Lasix] 40 mg tablet 40 mg PO Q2D Qty: 0 RF: 0 Discontinued lisinopril 5 mg tablet 5 mg PO DAILY RF: 0 Stand-Alone Forms: [facility] Discharge Orders: Discharge Order (Routine); Ordered 01/09/19 Ordered By: Jesus Taveras Skilled Items Patient informed of condition?: Yes DNR: No Discharge Level of Care: Acute rehab Communicable Disease: No Discharge Prognosis: Improving Admission Data Admit Date/Time: 01/06/19 15:19 Attending Provider: Jesus Taveras Admit Provider: Mary Garcia Primary Care Provider: Ismael Villagran Other Providers: Mary Garcia Service: Medical Other Interventions: Discharge Summary Assessment (RN) Last Done: 01/09/19 12:18 DC Date/Time DO NOT enter until pt leaves facility: 01/09/19 14:45
== END 2019-01-09 14:45 | DRG 683 ==
LOC: ED 10:26 → 4E 15:19 → SUATTDRO 15:19 → 4E 16:20

== ENCOUNTER 2019-05-27 09:20 | Inpatient (IN) ==
[2019-05-27] MEDS ORDERED: SODIUM CHLORIDE 0.9% 1000ML 1,000 ML IV SCH (09:45)
[2019-05-27 10:15] LABS: Basophils # (auto) 0.01 K/uL (0-0.2); Basophils % (auto) 0.2 %; Eosinophils # (auto) 0.15 K/uL (0-0.5); Eosinophils % (auto) 2.3 %; Hematocrit (blood only) 31.5 % (42-52); Hemoglobin 10.4 g/dL (14.0-18.0); Immature Granulocytes # (auto) 0.02 K/uL (0.00-0.02); Immature Granulocytes % (auto) 0.3 %; Lymphocytes # (auto) 0.73 K/uL (1.2-3.4); Lymphocytes % (auto) 11.4 %; Mean Corpuscular Hemoglobin 31.4 pg (25-34); Mean Corpuscular Volume 95.2 fL (80-100); Mean Platelet Volume 9.6 fL (7.4-10.4); Monocytes # (auto) 0.57 K/uL (0.11-0.59); Monocytes % (auto) 8.9 %; Neutrophils # (auto) 4.91 K/uL (1.4-6.5); Neutrophils % (auto) 76.9 %; Platelet Count 168 K/uL (130-400); RDW Coefficient of Variation 13.7 % (11.5-14.5); RDW Standard Deviation 47.2 fL (36.4-46.3); Red Blood Count 3.31 M/uL (4.7-6.1); White Blood Count 6.39 K/uL (4.8-10.8)
--- NOTE | 2019-05-27 10:20 | Emergency Department Note ---
History of Present Illness General Chief complaint: Rib Injury/Pain Stated complaint: LT SIDED RIB PAIN,S/P FALL Source: patient and family Mode of arrival: ambulatory Limitations: no limitations History of Present Illness This patient is an 88-year-old male who presents to the emergency department with complaints of left sided chest pain and bruising after at least 2 falls in the last several days. Patient's states he does take Eliquis for history of atrial fibrillation. Patient's states he woke up "several days ago" prior to his 's waking up. noticed bathroom light and several other lights on and patient talking in his sleep. She believes that he had fallen at some point in the cone chocolate dipper. Yesterday the patient's noticed bruising to the left chest wall. He has fallen again yesterday when she found him on the floor with his walker on top of him. He was alert and ambulatory at the time. They were seen by the outpatient physician's office where an x-ray and ultrasound were performed. Patient was referred to the emergency department today for 2 rib fractures and a pleural effusion on the left. Patient's states he has memory difficulties however seems to be at his cognitive baseline. She denies any nausea or vomiting. He denies any chest pain, shortness of breath or abdominal pain. Patient did take his Eliquis this morning. Home Medications Home Medications Medication Instructions Recorded Confirmed Type atorvastatin [Lipitor] 10 mg PO HS 11/30/18 05/27/19 History carvedilol [Coreg] 12.5 mg PO BID 11/30/18 05/27/19 History cholecalciferol (vitamin D3) 1,000 unit PO DAILY 11/30/18 05/27/19 History [Vitamin D3] digoxin [Digitek] 125 mcg PO DAILY 11/30/18 05/27/19 History escitalopram oxalate [Lexapro] 20 mg PO HS 11/30/18 05/27/19 History memantine [Namenda XR] 28 mg PO HS 11/30/18 05/27/19 History multivitamin 1 tab PO QAM 11/30/18 05/27/19 History vitamin B complex 1 tab PO DAILY 11/30/18 05/27/19 History cyclosporine 0.05 % eye drops 1 drops OP Q12H #5.5 ml 01/21/19 05/27/19 Rx losartan 25 mg tablet 25 mg PO DAILY #90 tab 01/21/19 05/27/19 Rx furosemide 40 mg tablet 40 mg PO Q OTHER DAY tab 03/24/19 05/27/19 History apixaban 5 mg tablet 5 mg PO BID tab 05/12/19 05/27/19 History Allergies Allergy/AdvReac Type Severity Reaction Status Date / Time donepezil [From Aricept] AdvReac Mild Diarrhea Unverified 05/27/19 10:35 Past Med/Surg History Medical History Pacemaker (Chronic) Cardiac defibrillator in place (Chronic) Stroke (Resolved) A-fib (Chronic) Hyperlipidemia (Chronic) Anemia (Acute) CHF (congestive heart failure) (Acute) Chronic renal disease (Acute) Cognitive impairment Spermatocele of epididymis Surgical History History of prostate surgery (Chronic) History of hemorrhoidectomy S/P cataract surgery Family History Father Acute myocardial infarction Mother Cancer Social History Preferred Language: [place] Communication Ability: Effective 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 Beliefs That Will Affect Care: Worship Worship Beliefs: Patient is Jehovah Witness marital status: Current Living Situation: Spouse Current Living Situation Comment: home with current occupational status: retired Other Information That Helps Us Care for You: No Feels Safe at Home: Yes Safety Concerns: Feels Safe At This Time Smoking Status: Former smoker Tobacco Type: cigarettes ; Smoking End Date: "60 years ago" ; Second Hand Exposure: No ; Hx Alcohol Use: No Hx Substance Use: No Review of Systems A total of 10 systems reviewed and were otherwise negative (Somewhat unreliable due to patient's dementia) Physical Exam Vital Signs Vital Signs - 24 hr 05/27/19 09:20 05/27/19 09:24 05/27/19 10:19 Temperature 36.7 C Temperature Source Oral Oral Sepsis Recent Fever Within 48 Hours No Sepsis Action Taken by Nursing No Action Required Pulse Rate 61 Pulse Rate [Finger] 59 L Pulse Rhythm Regular Respiratory Rate 16 20 Respiratory Effort / Characteristics Non-Labored Respiratory Depth Normal Respiratory Pattern Blood Pressure 106/68 Blood Pressure [Left Arm] Blood Pressure [Right Arm] 98/65 L Blood Pressure Mean 80 Blood Pressure Mean [Left Arm] Blood Pressure Mean [Right Arm] 76 Blood Pressure Position Sitting Blood Pressure Position [Right Arm] Pulse Oximetry 99 97 Oxygen Delivery Method Room Air Room Air 05/27/19 11:23 05/27/19 13:02 05/27/19 13:09 Temperature 36.7 C Temperature Source Oral Sepsis Recent Fever Within 48 Hours Sepsis Action Taken by Nursing Pulse Rate Pulse Rate [Finger] 68 60 60 Pulse Rhythm Respiratory Rate 22 19 19 Respiratory Effort / Characteristics Non-Labored Spontaneous Respiratory Depth Normal Respiratory Pattern Regular Blood Pressure Blood Pressure [Left Arm] 125/85 145/95 H Blood Pressure [Right Arm] 145/95 H Blood Pressure Mean Blood Pressure Mean [Left Arm] 98 111 Blood Pressure Mean [Right Arm] 111 Blood Pressure Position Blood Pressure Position [Right Arm] Lying Pulse Oximetry 99 99 99 Oxygen Delivery Method Room Air Room Air Room Air Vital signs reviewed. General: Well-appearing 88-year-old male, in no significant distress. HEENT: No scleral icterus, PERRLA, neck supple. Atraumatic. Cardiovascular: Regular rate and rhythm, no extra sounds. Pulmonary: Clear to auscultation bilaterally, normal work of breathing. Abdomen: Soft, nontender, nondistended, positive bowel sounds. Musculoskeletal: Atraumatic, no significant deformity. Cervical, thoracic and lumbar spine are palpated, nontender, no step-off or deformity appreciated. Nontender to palpation over the anterior and posterior chest leong. Neurologic: Patient awake alert and cooperative. Hard of hearing. Answers simple questions appropriately. Skin: Warm, dry, no rash. Large amount of ecchymosis to the left anterior and mid axillary chest wall Course Administered Medications Furosemide (Lasix) 40 mg PO Q2D@0900 [facility] Stop: 06/26/19 15:14 Last Admin: 05/27/19 17:03 Dose: 40 mg Documented by: [id number] Lidocaine (Lidoderm 5%) 1 patch TD QAM [facility] Stop: 06/26/19 15:14 Last Admin: 05/27/19 17:04 Dose: 1 patch Documented by: [id number] Miscellaneous (Order Awaiting Action) 1 ea N/A QS [facility] Stop: 06/26/19 15:59 Last Admin: 05/27/19 17:04 Dose: Not Given Documented by: [id number] Miscellaneous (Order Awaiting Action) 1 ea N/A QS NATALYA Stop: 06/26/19 15:59 Last Admin: 05/27/19 17:05 Dose: Not Given Documented by: [id number] Discontinued Medications Sodium Chloride (Nss 1000ml) 1,000 mls @ 100 mls/hr IV .Q10H NATALYA Stop: 05/27/19 19:44 Last Infusion: 05/27/19 15:18 Dose: 0 mls/hr Documented by: [id number] Infusion: 05/27/19 15:17 Dose: 0 mls/hr Documented by: [id number] Admin: 05/27/19 10:15 Dose: 100 mls/hr Documented by: [id number] Ioversol (Optiray 320 100ml) 93 ml IV ONCE PRN PRN Reason: Interaction Checking Stop: 05/31/19 10:54 Last Admin: 05/27/19 10:55 Dose: 93 ml Documented by: [id number] Medical Decision Making Differential Diagnosis DDx: Intracranial injury, cervical spine injury, intrathoracic injury, intra- abdominal injury, musculoskeletal injury. Medical Records Attestation: I reviewed the patient's medical records. Laboratory Data Result diagrams: 05/27/19 10:02 05/27/19 10:02 Lab Results 05/27/19 05/27/19 Range/Units 10:02 10:02 WBC 6.39 (4.8-10.8) K/uL RBC 3.31 L (4.7-6.1) M/uL Hgb 10.4 L (14.0-18.0) g/dL Hct 31.5 L (42-52) % MCV 95.2 (80-100) fL MCH 31.4 (25-34) pg MCHC 33.0 (32-36) g/dL RDW Std Deviation 47.2 H (36.4-46.3) fL RDW Coeff of Lew 13.7 (11.5-14.5) % Plt Count 168 (130-400) K/uL MPV 9.6 (7.4-10.4) fL Immature Gran % (Auto) 0.3 % Neut % (Auto) 76.9 % Lymph % (Auto) 11.4 % Rusk % (Auto) 8.9 % Eos % (Auto) 2.3 % Baso % (Auto) 0.2 % Immature Gran # (Auto) 0.02 (0.00-0.02) K/uL Neut # (Auto) 4.91 (1.4-6.5) K/uL Lymph # (Auto) 0.73 L (1.2-3.4) K/uL Rusk # (Auto) 0.57 (0.11-0.59) K/uL Eos # (Auto) 0.15 (0-0.5) K/uL Baso # (Auto) 0.01 (0-0.2) K/uL Sodium 142 (136-145) mmol/L Potassium 3.8 (3.5-5.1) mmol/L Chloride 109 H (98-107) mmol/L Carbon Dioxide 27 (21-32) mmol/L Anion Gap 6.0 (3-11) BUN 50 H (7-18) mg/dl Creatinine 1.31 (0.6-1.4) mg/dl Est Cr Clr Drug Dosing 39.9 ml/min Est GFR ( Amer) 55.6 Est GFR (Non-Af Amer) 47.9 BUN/Creatinine Ratio 37.8 H (10-20) Glucose 107 H (70-99) mg/dl Calcium 9.4 (8.5-10.1) mg/dl Total Bilirubin 1.9 H (0.2-1) mg/dl AST 23 (15-37) U/L ALT 27 (12-78) U/L Alkaline Phosphatase 128 H (45-117) U/L Total Protein 6.3 L (6.4-8.2) gm/dl Albumin 3.3 L (3.4-5.0) gm/dl Globulin 3.0 (2.5-4.0) gm/dl Albumin/Globulin Ratio 1.1 (0.9-2) ECG Data Attestation: I personally reviewed and interpreted this ECG as follows: Indication: weakness Rate (beats per minute): 60 Findings: + paced rhythm (Biventricular pacer) Blood Pressure Blood Pressure Findings: Elevated blood pressure Blood Pressure Disposition: further management by hospitalist Head Trauma GCS Score: 15 MDM Narrative This patient was evaluated and appeared to be in no significant distress. IV access was obtained and laboratory work was drawn. The patient was placed on the wet finisher wool and found to be in a paced rhythm. Patient's laboratory work is fairly reassuring with a hemoglobin of 10.4. This is slightly lower than his baseline. Previous imaging studies including a chest x-ray and ultrasound were reviewed. Given the patient is on Eliquis, CT imaging of the head, neck, chest abdomen and pelvis was performed. There is evidence of 4 left-sided rib fractures, old right-sided rib fractures, left pleural effusion and 2 transverse process fractures. Patient was informed of the findings. He refuses transfer to any other facility. Dr. Steen of thoracic surgery was contacted and has agreed to consult on the patient's care. As this fall happened likely several days ago and again yesterday, internal medicine was consulted, Dr. Cee Garcia. She has agreed to evaluate the patient for admission and further management. Patient and family are aware of the plan and agree. Impression & Plan Multiple rib fractures involving four or more ribs, Pleural effusion, Antico agulant long-term use, Fracture of transverse process of thoracic vertebra Discharge Plan Visit Data *Final* Discharge Date/Time: 05/27/19 14:44 Chief Complaint: Rib Injury/Pain Stated Complaint: LT SIDED RIB PAIN,S/P FALL ED Provider: Sylvia Page Discharge Problem: Multiple rib fractures involving four or more ribs, Pleural effusion, Anticoagulant long-term use, Fracture of transverse process of thoracic vertebra Patient Disposition: Admitted As Inpatient Discharge Instructions Interventions: ED Discharge Assessment Last Done: 05/27/19 14:44 Discharge Problem: Fracture of transverse process of thoracic vertebra Qualifiers: Encounter type: initial encounter Fracture type: closed Qualified Code(s): S22.009A - Unspecified fracture of unspecified thoracic vertebra, initial encounter for closed fracture
[2019-05-27 10:32] LABS: Albumin Level 3.3 gm/dl (3.4-5.0); BUN Creatinine Ratio 37.8 (10-20); Calcium 9.4 mg/dl (8.5-10.1); Creatinine Clr Calc Pharmacy 39.9 ml/min; Est GFR (African American) 55.6; Est GFR (Non-African American) 47.9; Potassium 3.8 mmol/L (3.5-5.1)
[2019-05-27 10:35] LABS: Albumin Globulin Ratio 1.1 (0.9-2); Bilirubin,Total 1.9 mg/dl (0.2-1); Total Protein 6.3 gm/dl (6.4-8.2)
[2019-05-27] MEDS ORDERED: IOVERSOL 100ml IV PRN (10:55)
--- NOTE | 2019-05-27 11:10 | CT Scan Report ---
CT head/brain wo con CLINICAL HISTORY: 88 years-old Male with TRAUMA. Acute head injury status post recent fall TECHNIQUE: Multiple axial CT images of the head were obtained without contrast. A dose lowering tech nique was utilized adhering to the principles of ALARA. COMPARISON: CT cervical spine of same day, CT head 01/06/2019 FINDINGS: No acute intracranial hemorrhage, midline shift, intracranial mass, hydrocephalus, territorial ischem ia or abnormal extra-axial collection. Age-related involutional changes with ex vacuo ventriculomegal y. Remote infarct in the left lentiform and caudate nuclear distributions with associated encephaloma lacia and ex vacuo changes of the frontal horn left lateral ventricle, unchanged. Patchy white matter hypodensities suggest chronic microvascular ischemic disease. Cerebral vascular calcifications are n oted. The calvarium is intact. The paranasal sinuses, mastoid air cells, and middle ear cavities are clear . IMPRESSION: 1. No acute intracranial abnormality or calvarial fracture. 2. Chronic findings as above. The above report was generated using voice recognition software. It may contain grammatical, syntax o r spelling errors. Electronically signed by: Guillermo Wilkins M.D. 05/27/2019 11:09 AM
--- NOTE | 2019-05-27 11:12 | CT Scan Report ---
CT OF THE CERVICAL SPINE CLINICAL HISTORY: Neck pain status post trauma COMPARISON STUDY: 11/30/2018 CT DOSE: 2008.86 mGy.cm TECHNIQUE: CT scan of the cervical spine was performed from the skull base to the thoracic inlet. Carola ges are reviewed in the axial, sagittal, and coronal planes. IV contrast was not administered for thi s examination. A dose lowering technique was utilized adhering to the principles of ALARA. FINDINGS: The visualized portions of the lung apices reveal no evidence of pneumothorax. There is partial visua lization of aneurysmal dilatation of aortic arch which measures at least 4.1 cm in diameter. There is a moderate left pleural effusion. The prevertebral soft tissues are normal. No fractures or traumatic subluxations are visualized. There are multilevel degenerative changes. There is partial C3-4-5 fusion. Minor retrolisthesis of C3 on C4 is felt to be degenerative. There is mild anterolisthesis of C5 on C6 which is felt to be dege nerative. IMPRESSION: 1. No evidence of acute fracture or traumatic subluxation 2. Moderate multilevel spondylytic changes 3. Moderate left pleural effusion 5. Partial visualization of an aneurysmally dilated aortic arch. Electronically signed by: Tony Adkins M.D. 05/27/2019 11:10 AM
--- NOTE | 2019-05-27 11:22 | CT Scan Report ---
CT OF THE CHEST WITH IV CONTRAST CLINICAL HISTORY: Thoracic bruising status post trauma. COMPARISON STUDY: No previous studies for comparison. TECHNIQUE: Following the IV administration of 93 mL of Optiray-320, CT of the thorax was performed f rom the thoracic inlet to the lung bases. Images are reviewed in the axial, sagittal, and coronal philly marshall. IV contrast was administered without complication. A dose lowering technique was utilized adher ing to the principles of ALARA. CT DOSE: FINDINGS: Thyroid: Imaged portions of the thyroid gland are normal in appearance. Thoracic aorta: There is aneurysmal dilatation of the ascending thoracic aorta which measures 4.5 cm in diameter. The proximal descending thoracic aorta measures 4 cm. No intimal flaps are visualized. T here is no mediastinal hematoma to indicate an acute aortic injury. Pulmonary vasculature: The pulmonary trunk is normal in caliber. There are no central filling defects identified to suggest pulmonary embolus. Note that this examination was not protocoled for the evalu ation of pulmonary emboli. HEART: The heart is enlarged. There are coronary artery calcifications. Lungs and pleural spaces: There is a [id number] left pleural effusion with associated left low er lobe airspace opacities, likely atelectatic. There is no pneumothorax. There is scattered calcifie d granulomas. In addition there is a noncalcified solid 4 mm right lower lobe pulmonary nodule. In a high-risk patient a 12 month follow-up is optional. In a low risk patient, no further follow-up is deemed clinically necessary Mediastinum: There is no evidence of pathologic mediastinal lymphadenopathy Pari: There is known to pathologic hilar adenopathy Axilla: There is no evidence of pathologic axillary lymphadenopathy Upper abdomen: Partially visualized upper abdominal viscera is within normal limits. Skeletal structures: There are fractures of the left ninth, 10th, 11th, and 12th ribs. IMPRESSION: 1. Acute fractures of the left ninth, 10th, 11th, 12th ribs 2. Kaykt-[id number]-[id number] left pleural effusion with associated left lower lobe compressive atelectasis 3. No evidence of pneumothorax 4. No evidence of mediastinal injury 5. Thoracic aortic aneurysm. Electronically signed by: Tony Adkins M.D. 05/27/2019 11:21 AM
--- NOTE | 2019-05-27 11:33 | CT Scan Report ---
ABDOMEN AND PELVIS CT WITH IV CONTRAST HISTORY: Acute chest and abdominal trauma status post fall TRAUMA TECHNIQUE: Multiaxial CT images of the abdomen and pelvis were performed following the IV administrat ion of 93 cc of Optiray 320, A dose lowering technique was utilized adhering to the principles of AL NIKOLAS. COMPARISON STUDY: CT lumbar spine and pelvis 01/06/2019 FINDINGS: Partially imaged left hemothorax with left basilar consolidation. Marked cardiomegaly. Partially imag ed pacer leads and coronary arterial calcifications. No pneumatosis or pneumoperitoneum identified. T he imaged liver is unremarkable. Mild intrahepatic biliary ductal dilation with contracted gallbladde r. Liver is otherwise unremarkable. Unremarkable appearance of the spleen. Moderate generalized pancr eatic atrophy. 1.5 cm cystic focus about the superior aspect of the pancreatic neck on image 80 serie s 13 may reflect a sidebranch IPMN however is nonspecific. Unremarkable adrenal glands. 3.1 cm hypode nse lesion of the inferior pole left kidney suggest probable cyst. Nonspecific bilateral perinephric stranding. No obstructive uropathy. Mild wall thickening of the bladder with mild distention. Prostam egaly. Tortuosity with moderate calcified plaque of the abdominal aorta. Tortuosity with fusiform dil ation of the left common iliac artery, 2.4 cm transversely. No adenopathy. Mild nonspecific wall thickening of the distal stomach may be secondary to partial distention. No bow el obstruction or bowel wall thickening. Large stool ball of the rectum. There is otherwise mild to m oderate fecal retention throughout the remainder of the colon. Nonvisualization of the appendix. Mild generalized body wall edema. Multilevel degenerative changes of the lumbar spine, pelvis and hips redemonstrated. Demineralized ap pearance of the bones. Remote appearing fracture of the S3 vertebral bodies unchanged. Acute displace d fractures of the left ninth through 12th ribs. The posterior 11th rib is fractured in 2 or more philly asa. Additionally, there are acute minimally displaced fracture involving the left transverse process of T10 and T11. Healing subacute appearing fractures of the lateral right ninth through 12th ribs. N o acute vertebral body fracture identified. IMPRESSION: 1. Multiple acute displaced left-sided rib fractures with partially imaged left hemothorax. Additiona lly, there are acute mildly displaced fractures involving the left T10 and T11 transverse processes. 2. No evidence of acute solid organ injury, pneumatosis or pneumoperitoneum. 3. Prostamegaly with findings suggestive of chronic urinary bladder outlet obstruction. 4. Fecal retention with large stool ball of the rectum. 5. Marked cardiomegaly. 6. Multiple healing subacute appearing right-sided rib fractures. 7. Additional findings as above. Electronically signed by: Guillermo Wilkins M.D. 05/27/2019 11:31 AM
--- NOTE | 2019-05-27 13:21 | History & Physical Report ---
Date of Service May 27, 2019 Assessment & Plan (1) Fall: (2) Multiple rib fractures involving four or more ribs: -Admit to PCU - Hx of frequent falls where he sustained left sided 9-12th rib fractures and thoracic vertebrae fx at T10 and T11. He has fallen multiple times including 7 days ago, 5 days ago, and yesterday. -Multiple imaging studies reviewed as above. -Pain well controlled at this time: Will use Tylenol [id number], lidocaine patch, avoid narcotics -PT/OT consults -Thoracic surgery consult for possible drainage of pleural effusion/likely hemothorax with history of being anticoagulated on Eliquis for A. fib -Monitor hemoglobin, currently 10 0.4, next check at 1999 -VSS -Hold Eliquis -Encourage incentive spirometry, deep breaths, cough to prevent atelectasis and decrease risk of future pneumonia (3) Pleural effusion: -As per imaging studies, reviewed above -Possibly hemothorax, thoracic surgery consulted for possible drainage (4) A-fib: -Ventricularly paced, EKG reviewed in NSR -Follows with Dr. Rodriugez as an outpatient -Holding Eliquis -Continue digoxin and losartan, holding carvedilol (5) Pacemaker: (6) Cardiac defibrillator in place: (7) Pulmonary hypertension: (8) CHF (congestive heart failure): -Chronic systolic -Continue Lasix, last dose was on 05/25, was supposed to get one today however will hold with administration of fluids, monitor for any signs of volume overloaded. The patient appears to be euvolemic currently. No further fluids. Consider dose of p.o. Lasix tomorrow versus Saturday as normally scheduled. -Holding carvedilol as this would mask a tachycardia reflex with increased bleeding -Continue losartan, digoxin (9) Chronic renal disease: -Appears stage III, creatinine = 1.3, BUN = 50 -Follow with a.m. PRP (10) Anemia: -Appears baseline is between 11-12, currently 10.4, routine check at 1999 as above (11) Stroke: -History of such (12) DVT prophylaxis: Teds, holding Eliquis CODE STATUS: DNR Disposition: patient from home and lives with History of Present Illness Primary Care Provider: Ismael Villagran MD This is an 88 yo M with PMhx of afib with eliquis, frequent falls, hx of stroke, anemia, CHF, pulmonary hypertension, pacemaker/AICD, CKD, who presents after recent falls where he sustained left sided 9-12th rib fractures and thoracic vertebrae fx at T10 and T11. He has fallen multiple times including 7 days ago, 5 days ago, and yesterday. Pts is present at bedside and supports the hx. He reports his pain is well controlled, and actually does not have pain at rest. He denies falls with hitting his head of LOC yesterday, but admits to hitting his head last week. He has not had any issues with dizziness, lightheadedness, or visual disturbances. He uses a walker at all times in his home. Pt denies any other acute complaints, and reports that he wanted to go home, but his is making him stay. Allergies Allergy/AdvReac Type Severity Reaction Status Date / Time donepezil [From Aricept] AdvReac Mild Diarrhea Unverified 05/27/19 10:35 Home Medications Home Medications Medication Instructions Recorded Confirmed Type atorvastatin [Lipitor] 10 mg PO HS 11/30/18 05/27/19 History carvedilol [Coreg] 12.5 mg PO BID 11/30/18 05/27/19 History cholecalciferol (vitamin D3) 1,000 unit PO DAILY 11/30/18 05/27/19 History [Vitamin D3] digoxin [Digitek] 125 mcg PO DAILY 11/30/18 05/27/19 History escitalopram oxalate [Lexapro] 20 mg PO HS 11/30/18 05/27/19 History memantine [Namenda XR] 28 mg PO HS 11/30/18 05/27/19 History multivitamin 1 tab PO QAM 11/30/18 05/27/19 History vitamin B complex 1 tab PO DAILY 11/30/18 05/27/19 History cyclosporine 0.05 % eye drops 1 drops OP Q12H #5.5 ml 01/21/19 05/27/19 Rx losartan 25 mg tablet 25 mg PO DAILY #90 tab 01/21/19 05/27/19 Rx furosemide 40 mg tablet 40 mg PO Q OTHER DAY tab 03/24/19 05/27/19 History apixaban 5 mg tablet 5 mg PO BID tab 05/12/19 05/27/19 History Past Med/Surg History Medical History Pacemaker (Chronic) Cardiac defibrillator in place (Chronic) Stroke (Resolved) A-fib (Chronic) Hyperlipidemia (Chronic) Anemia (Acute) CHF (congestive heart failure) (Acute) Chronic renal disease (Acute) Cognitive impairment Spermatocele of epididymis Surgical History History of prostate surgery (Chronic) History of hemorrhoidectomy S/P cataract surgery Family History Father Acute myocardial infarction Mother Cancer Social History Preferred Language: Lithuanian Communication Ability: Effective 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 Beliefs That Will Affect Care: Zoroastrianism Zoroastrianism Beliefs: Patient is Jehovah Witness marital status: Current Living Situation: Spouse Current Living Situation Comment: home with current occupational status: retired Other Information That Helps Us Care for You: No Feels Safe at Home: Yes Safety Concerns: Feels Safe At This Time Smoking Status: Former smoker Tobacco Type: cigarettes ; Smoking End Date: "60 years ago" ; Second Hand Exposure: No ; Hx Alcohol Use: No Hx Substance Use: No Review of Systems Review of Systems: Constitutional: No fever, sweats or chills Eyes: No diplopia, no worsening or blurred vision ENT: normal hearing, no trouble swallowing Respiratory: No cough, sputum, dyspnea at rest or on exertion Cardiovascular: No chest pain at rest, +left sided pain with movement, tightness or palpitations Abdomen: No pain, nausea, vomiting, diarrhea or constipation Musculoskeletal: No joint pain, calf pain, swelling Neurologic: + generalized weakness and balance problems, + frequent falls Psychiatric: No anxiety or depression Skin: No rash or itch Physical Exam Physical Exam: General: awake, alert, no apparent distress, + thin, + multiple areas of ecchymosis Head: Normocephalic, atraumatic ENT: PERRL, EOMI, no pharyngeal exudate, mucous membranes moist Chest: + cardiac defibrillator/pacemaker in place, +absent breath sounds in the LLL, right is clear to auscultation, on room air Cardiac: Regular rate and rhythm, no murmur, no JVD, normal peripheral pulses, good capillary refill Abdominal: NABS x 4 quadrants, soft, nontender to palpation, no rebound, guarding or tenderness Extremities:+ multiple areas of ecchymosis, +1 pitting in BLE, no erythema, calfs nontender to palpation Psych: Normal mood and affect Neuro: AAO x 3, no motor deficits, speech is clear, no peripheral sensory deficits Results & Data Vital Signs (Past 12 Hours) Vital Signs Temp Pulse Pulse Resp BP BP BP 05/27/19 13:02 60 19 145/95 H 05/27/19 11:23 68 22 125/85 05/27/19 10:19 59 L 20 98/65 L 05/27/19 09:24 36.7 C 61 16 106/68 Pulse Ox 05/27/19 13:02 99 05/27/19 11:23 99 05/27/19 10:19 97 05/27/19 09:24 99 Diagnostic Findings ABDOMEN AND PELVIS CT WITH IV CONTRAST HISTORY: Acute chest and abdominal trauma status post fall TRAUMA TECHNIQUE: Multiaxial CT images of the abdomen and pelvis were performed following the IV administration of 93 cc of Optiray 320, A dose lowering technique was utilized adhering to the principles of ALARA. COMPARISON STUDY: CT lumbar spine and pelvis 01/06/2019 FINDINGS: Partially imaged left hemothorax with left basilar consolidation. Marked cardiomegaly. Partially imaged pacer leads and coronary arterial calcifications. No pneumatosis or pneumoperitoneum identified. The imaged liver is unremarkable. Mild intrahepatic biliary ductal dilation with contracted gallbladder. Liver is otherwise unremarkable. Unremarkable appearance of the spleen. Moderate generali zed pancreatic atrophy. 1.5 cm cystic focus about the superior aspect of the pancreatic neck on image 80 series 13 may reflect a sidebranch IPMN however is nonspecific. Unremarkable adrenal glands. 3.1 cm hypodense lesion of the inferior pole left kidney suggest probable cyst. Nonspecific bilateral perinephric stranding. No obstructive uropathy. Mild wall thickening of the bladder with mild distention. Prostamegaly. Tortuosity with moderate calcified plaque of the abdominal aorta. Tortuosity with fusiform dilation of the left common iliac artery, 2.4 cm transversely. No adenopathy. Mild nonspecific wall thickening of the distal stomach may be secondary to partial distention. No bowel obstruction or bowel wall thickening. Large stool ball of the rectum. There is otherwise mild to moderate fecal retention throughout the remainder of the colon. Nonvisualization of the appendix. Mild generalized body wall edema. Multilevel degenerative changes of the lumbar spine, pelvis and hips redemon strated. Demineralized appearance of the bones. Remote appearing fracture of the S3 vertebral bodies unchanged. Acute displaced fractures of the left ninth through 12th ribs. The posterior 11th rib is fractured in [address]. Additionally, there are acute minimally displaced fracture involving the left transverse process of T10 and T11. Healing subacute appearing fractures of the lateral right ninth through 12th ribs. No acute vertebral body fracture identified. IMPRESSION: 1. Multiple acute displaced left-sided rib fractures with partially imaged left hemothorax. Additionally, there are acute mildly displaced fractures involving the left T10 and T11 transverse processes. 2. No evidence of acute solid organ injury, pneumatosis or pneumoperitoneum. 3. Prostamegaly with findings suggestive of chronic urinary bladder outlet obstruction. 4. Fecal retention with large stool ball of the rectum. 5. Marked cardiomegaly. 6. Multiple healing subacute appearing right-sided rib fractures. 7. Additional findings as above. SOFT TISSUE ULTRASOUND LEFT FLANK REGION CLINICAL HISTORY: fall, large ecchymosis COMPARISON STUDY: No previous studies for comparison. FINDINGS: Targeted ultrasonography was performed in the area of ecchymosis adjacent to the left iliac crest. There is moderate edematous soft tissue. There are no fluid collections to indicate a drainable hematoma. IMPRESSION: 1. Soft tissue edema. 2. No focal fluid collections identified. XR ribs LT min 3V w CXR1V CLINICAL HISTORY: Left rib pain status post trauma COMPARISON STUDY: Chest x-ray dated 01/06/2019 FINDINGS: Direct chest reveals cardiac enlargement. There is a left subclavian pacer/defibrillator. There is a left pleural effusion which was not present on the prior study. There are acute fractures of the left ninth and 10th ribs. There is no pneumothorax. IMPRESSION: 1. Acute fractures of the left ninth and 10th ribs 2. Interval development of a left pleural effusion 3. Left basilar opacities likely representing compressive atelectasis 4. No evidence of pneumothorax CT head/brain wo con CLINICAL HISTORY: 88 years-old Male with TRAUMA. Acute head injury status post recent fall TECHNIQUE: Multiple axial CT images of the head were obtained without contrast. A dose lowering technique was utilized adhering to the principles of ALARA. COMPARISON: CT cervical spine of same day, CT head 01/06/2019 FINDINGS: No acute intracranial hemorrhage, midline shift, intracranial mass, hydrocephalus, territorial ischemia or abnormal extra-axial collection. Age- related involutional changes with ex vacuo ventriculomegaly. Remote infarct in the left lentiform and caudate nuclear distributions with associated encephalomalacia and ex vacuo changes of the frontal horn left lateral ventricle, unchanged. Patchy white matter hypodensities suggest chronic microvascular ischemic disease. Cerebral vascular calcifications are noted. The calvarium is intact. The paranasal sinuses, mastoid air cells, and middle ear cavities are clear. IMPRESSION: 1. No acute intracranial abnormality or calvarial fracture. 2. Chronic findings as above. CT OF THE CHEST WITH IV CONTRAST CLINICAL HISTORY: Thoracic bruising status post trauma. COMPARISON STUDY: No previous studies for comparison. TECHNIQUE: Following the IV administration of 93 mL of Optiray-320, CT of the thorax was performed from the thoracic inlet to the lung bases. Images are reviewed in the axial, sagittal, and coronal planes. IV contrast was administered without complication. A dose lowering technique was utilized adhering to the principles of ALARA. CT DOSE: FINDINGS: Thyroid: Imaged portions of the thyroid gland are normal in appearance. Thoracic aorta: There is aneurysmal dilatation of the ascending thoracic aorta which measures 4.5 cm in diameter. The proximal descending thoracic aorta measures 4 cm. No intimal flaps are visualized. There is no mediastinal hematoma to indicate an acute aortic injury. Pulmonary vasculature: The pulmonary trunk is normal in caliber. There are no central filling defects identified to suggest pulmonary embolus. Note that this examination was not protocoled for the evaluation of pulmonary emboli. HEART: The heart is enlarged. There are coronary artery calcifications. Lungs and pleural spaces: There is a [id number] left pleural effusion with associated left lower lobe airspace opacities, likely atelectatic. There is no pneumothorax. There is scattered calcified granulomas. In addition there is a noncalcified solid 4 mm right lower lobe pulmonary nodule. In a high-risk patient a 12 month follow-up is optional. In a low risk patient, no further follow-up is deemed clinically necessary Mediastinum: There is no evidence of pathologic mediastinal lymphadenopathy Pari: There is known to pathologic hilar adenopathy Axilla: There is no evidence of pathologic axillary lymphadenopathy Upper abdomen: Partially visualized upper abdominal viscera is within normal limits. Skeletal structures: There are fractures of the left ninth, 10th, 11th, and 12th ribs. IMPRESSION: 1. Acute fractures of the left ninth, 10th, 11th, 12th ribs 2. [id number] left pleural effusion with associated left lower lobe compressive atelectasis 3. No evidence of pneumothorax 4. No evidence of mediastinal injury 5. Thoracic aortic aneurysm. CT OF THE CERVICAL SPINE CLINICAL HISTORY: Neck pain status post trauma COMPARISON STUDY: 11/30/2018 CT DOSE: 2008.86 mGy.cm TECHNIQUE: CT scan of the cervical spine was performed from the skull base to the thoracic inlet. Images are reviewed in the axial, sagittal, and coronal planes. IV contrast was not administered for this examination. A dose lowering technique was utilized adhering to the principles of ALARA. FINDINGS: The visualized portions of the lung apices reveal no evidence of pneumothorax. There is partial visualization of aneurysmal dilatation of aortic arch which measures at least 4.1 cm in diameter. There is a moderate left pleural effusion. The prevertebral soft tissues are normal. No fractures or traumatic subluxations are visualized. There are multilevel degenerative changes. There is partial C3-4-5 fusion. Minor retrolisthesis of C3 on C4 is felt to be degenerative. There is mild anterolisthesis of C5 on C6 which is felt to be degenerative. IMPRESSION: 1. No evidence of acute fracture or traumatic subluxation 2. Moderate multilevel spondylytic changes 3. Moderate left pleural effusion 5. Partial visualization of an aneurysmally dilated aortic arch. Electronically signed by: Tony Adkins M.D. ECG Additional Comments: 27-MAY-2019 10:06:44 [facility]-EDSTAT ROUTINE RETRIEVAL Ventricular-paced rhythm Biventricular pacemaker detected Abnormal ECG When compared with ECG of 06-JAN-2019 11:43, No significant change was found Confirmed by Liu Sidhu ([id number]) on 05/27/2019 11:36:11 AM 25mm/s 10mm/mV 150Hz 9.0.9 12SL 241 BERT: 3 Referred by: Ismael Villagran Confirmed By: Liu Vital. rate 60 BPM RI interval * ms QRS duration 162 ms QT/QTc 476/476 ms P-R-T axes * 173 111 Code Status & VTE Plan Code Status DNR-discussed with the patient and his at bedside Supervising Physician Co-Signing Physician Notes Patient seen and examined, chart reviewed, case discussed with PADMINI Griggs and I agree with her assessment and plan as documented above. Briefly, patient is an 88-year-old male with history of atrial fibrillation on Eliquis anticoagulation, prior stroke, CHF, CKD, multiple falls. Patient presents status post fall. Found to have left-sided fracture of ribs 9, 10, 11 and 12 as well as T10/T11 transverse process fracture. Moderate sized left-sided left pleural effusion. Patient offers no complaints. Denies chest pain, shortness of breath, pleurisy. No additional complaints at this time. On physical exam he is afebrile, hemodynamically stable, no respiratory distress, adequate oxygenation on room air. General: Frail, elderly male resting comfortably Skin: Scattered ecchymoses. No appreciable hematoma HEENT:: Normocephalic atraumatic, pupils equal round and reactive, moist mucous membranes, neck supple, trachea midline Lungs: Equal air entry bilaterally, diminished in left base. No paradoxical chest wall movement. No crepitus Abdomen: Bowel sounds present. Soft, nontender/nondistended Extremities: Warm, well-perfused Labs and images reviewed. Significant for hemoglobin = 10.4, hematocrit = 31.5. INR = 1.3 CT chest with acute fractures of left ninth 10th 11th and 12th ribs as well as a small to moderate left-sided pleural effusion with compressive atelectasis. No pneumothorax. No mediastinal injury. Thoracic aortic aneurysm 4.5 cm in diameter Assessment/plan: 88-year-old male with atrial fibrillation on Eliquis status post fall with multiple left-sided rib fractures, pleural effusion, concern for hemothorax. -We will hold Eliquis -Trend CBC -Closely monitor respiratory status -Consult Dr. Steen, thoracentesis versus conservative management -Remainder of plan as above PG Care Time/CCT Total # of Minutes Spent Total Time Spent with Patient: Total time spent is greater than 50% in coordination of care (as documented) at patient's floor/unit and/or counseling patient: (1) CHF (congestive heart failure) Heart failure type: unspecified (2) Anemia Anemia type: unspecified type Qualified Code(s): D64.9 - Anemia, unspecified (3) A-fib Atrial fibrillation type: unspecified Qualified Code(s): I48.91 - Unspecified atrial fibrillation (4) Chronic renal disease Chronic kidney disease stage: unspecified stage Qualified Code(s): N18.9 - Chronic kidney disease, unspecified (5) Fall Encounter type: initial encounter Qualified Code(s): W19.XXXA - Unspecified fall, initial encounter
[2019-05-27] MEDS ORDERED: ONDANSETRON INJ 2 MG/ML 2 ML VIAL IV PRN (15:15)
[2019-05-27] MEDS ORDERED: ACETAMINOPHEN 500 MG TAB PO PRN (15:15)
[2019-05-27 15:47] LABS: INR 1.3 (0.9-1.1); Prothrombin Time 12.9 Seconds (9.0-12.0)
[2019-05-27] MEDS: FUROSEMIDE 40 MG TAB PO SCH (17:03)
[2019-05-27] MEDS: LIDOCAINE 5% 1 PATCH TD SCH (17:04)
[2019-05-27 20:02] LABS: Hematocrit (blood only) 30.5 % (42-52); Hemoglobin 10.1 g/dL (14.0-18.0)
[2019-05-27] MEDS: ATORVASTATIN 10 MG TAB PO SCH (20:47)
[2019-05-27] MEDS: ESCITALOPRAM OXALATE 20 MG TAB PO SCH (20:47)
--- NOTE | 2019-05-27 22:29 | Consultation Report ---
DATE OF CONSULTATION: 05/27/2019 REASON FOR CONSULTATION: Rib fractures and left pleural effusion. HISTORY OF PRESENT ILLNESS: This is a very pleasant 88-year-old male who we evaluated in the Emergency Department. The patient came to the Emergency Department because he was complaining of some left-sided chest wall pain and bruising after he fell numerous times over the past several days. The patient says that he did not pass out causing his fall, but is unsure exactly what caused his fall. Nonetheless, he did present to the Emergency Department because of his falls. In the Emergency Department, the patient had numerous diagnostic studies performed. He did have labs where white blood cell count and platelet count were noted to be normal. His hemoglobin and hematocrit were 10.4 and 31.5, which were stable compared to past levels checked. Coagulation studies were not checked. Chemistry profile showed sodium, potassium and creatinine were normal. His BUN had a slight elevation at 50. Imaging studies were performed including a cervical spine CT scan that showed no fractures or subluxations of the cervical spine. He had a CT scan of the chest that showed a moderate left pleural effusion. He was noted to have fractures of the left ribs, levels 9 10, 11 and 12. There is no pneumothorax or mediastinal injuries noted. CT scan of the head showed no acute intracranial findings or skull fractures. He had a CT scan of his abdomen and pelvis where again left-sided rib fractures were identified. He was also noted to have fractures of the transverse processes of the left side on T10 and T11. At the time of my exam, the patient was resting comfortably in bed. He said as long as he did not move, he was comfortable, but if he tried to move, he had left-sided pain. Concerning other symptomatology, he has had numerous falls over the past several weeks. He does not report any head injuries, visual changes, tinnitus or vertigo. He denies sore throat or neck pain. He denies substernal chest pain or palpitations, but he does have a left-sided chest wall pain. He denies abdominal pain, nausea, vomiting. He does not report a history of DVT or PE. He denies anxiety or depression. Again, at the time of my exam, he is resting comfortably in bed. PAST MEDICAL HISTORY: Includes the followin. History of stroke. 2. History of atrial fibrillation. 3. Hyperlipidemia. 4. Anemia. 5. CHF. 6. Chronic kidney disease. 7. History of cognitive impairment. PAST SURGICAL HISTORY: Includes: 1. Permanent pacemaker placement. 2. Hemorrhoidectomy. 3. Cataract surgery. 4. Prostatectomy. FAMILY HISTORY: Positive for coronary artery disease and cancer. SOCIAL HISTORY: The patient formerly worked at a [employer]. He is a former smoker. ALLERGIES: HE HAS LISTED ALLERGIES TO ARICEPT. OUTPATIENT MEDICATIONS: Include: 1. Eliquis 5 mg twice daily. 2. Lipitor 10 mg daily. 3. Coreg 12.5 mg twice daily. 4. Vitamin D3 1000 units daily. 5. Cyclosporine eyedrops every 12 hours. 6. Digoxin 0.125 mg daily. 7. Lexapro 20 mg daily. 8. Lasix 40 mg every other day. 9. Losartan 25 mg daily. 10. Namenda 28 mg at bedtime. 11. Multivitamin daily. 12. Vitamin B complex daily. REVIEW OF SYSTEMS: As noted above. PHYSICAL EXAMINATION: VITAL SIGNS: The patient's blood pressure is 125/85, pulse is 68 and regular, respirations are 22. They are nonlabored. He is afebrile with a temperature of 36.7. His pulse ox is 99% on room air. GENERAL: The patient appeared to be alert to time, place and person. He was in no distress. HEENT: Head is atraumatic, normocephalic. Eyes: There is no conjunctival abnormality noted. Ears: His auditory acuity is grossly intact. CARDIOVASCULAR: Revealed a regular rate and rhythm. LUNGS: Revealed decreased breath sounds at the left base. He did have pain with palpation of the left side of his chest wall. ABDOMEN: Soft and nontender. EXTREMITIES: Revealed that he had a hemosiderin deposition of his lower extremities bilaterally. He had palpable posterior tibial pulses. No gross orthopedic abnormalities were noted. NEUROLOGIC: Revealed he could move all 4 extremities and follow simple commands without noted focal deficits. DIAGNOSTIC DATA: As noted above. IMPRESSION: An 88-year-old male status post falls with rib fractures and pleural effusion. PLAN: The patient will be admitted under the medical service. We will leave it to their discretion to get appropriate physical and occupational therapy consultations as well as involve in a case management to ensure safe disposition of the patient due to his frequent falls. Due to his rib fractures, we have addressed this with the patient and his and noted that the mainstay for the treatment of this will be adequate pain control, so that he could cough and take deep breaths, which will be imperative for pulmonary toilet. Due to his pleural effusion, we will plan on performing a thoracentesis later this admission; however, since he takes Eliquis, we would like to hold off for 24-48 hours to ensure this procedure can be done safely. We will continue to follow along while he is in the hospital.
--- NOTE | 2019-05-28 | Consultation Report ---
DATE OF CONSULTATION: 05/27/2019 Mr. Colby is an 88-year-old male who has fallen and broken ribs and presented with a small to moderate left pleural effusion with some fractured ribs on the left. He did this a few days to ago. He is having some pain. We evaluated Mr. Colby. I believe we should offer him a thoracentesis; however, he is on an anticoagulant for his atrial fibrillation. We are going to hold this and we will see him tomorrow about offering him a thoracentesis under ultrasound guidance.
[2019-05-28 06:31] LABS: Hemoglobin 10.7 g/dL (14.0-18.0); Mean Corpuscular Hemoglobin 32.3 pg (25-34); Mean Corpuscular Hgb Conc 34.5 g/dL (32-36); Mean Corpuscular Volume 93.7 fL (80-100); Mean Platelet Volume 9.8 fL (7.4-10.4); Platelet Count 185 K/uL (130-400); RDW Coefficient of Variation 13.6 % (11.5-14.5); RDW Standard Deviation 46.9 fL (36.4-46.3); Red Blood Count 3.31 M/uL (4.7-6.1); White Blood Count 5.84 K/uL (4.8-10.8)
[2019-05-28 06:40] LABS: Appearance Urine Clear (Clear); Bilirubin Urine Negative (Negative); Blood Urine Negative (Negative); Color Urine Yellow; Glucose Urine UA Negative (Negative); Ketones Urine Negative (Negative); Leukocyte Esterase Urine Negative (Negative); Nitrite Urine Negative (Negative); Protein Urine Negative (Negative); Specific Gravity Urine 1.017 (1.000-1.030); Urobilinogen Urine Negative (Negative)
[2019-05-28 06:45] LABS: INR 1.2 (0.9-1.1); Prothrombin Time 12.4 Seconds (9.0-12.0)
[2019-05-28 07:03] LABS: Albumin Level 3.3 gm/dl (3.4-5.0); BUN Creatinine Ratio 32.6 (10-20); Creatinine Clr Calc Pharmacy 38.1 ml/min; Est GFR (African American) 54.5; Est GFR (Non-African American) 47.1
[2019-05-28 07:06] LABS: Albumin Globulin Ratio 1.2 (0.9-2); Bilirubin,Total 1.6 mg/dl (0.2-1); Globulin 2.8 gm/dl (2.5-4.0); Total Protein 6.1 gm/dl (6.4-8.2)
[2019-05-28] MEDS: CHOLECALCIFEROL 1,000 UNITS TAB PO SCH (08:01)
[2019-05-28] MEDS: VITAMIN B COMPLEX TAB PO SCH (08:01)
[2019-05-28] MEDS: MULTIVITAMIN TAB PO SCH (08:01)
[2019-05-28] MEDS: LOSARTAN POTASSIUM 25 MG TAB PO SCH (08:01)
[2019-05-28] MEDS: LIDOCAINE 5% 1 PATCH TD SCH (08:02)
--- NOTE | 2019-05-28 15:32 | Progress Note ---
DATE: 05/28/2019 Mr. Ramos was seen today. This 88-year-old fell and fractured ribs and other trauma and pleural cavity compressing his left lower lobe. Saturation is 97% on room air and his respiration rate is 18. He appears very comfortable. I am going to give him one more day and tap him tomorrow morning, so he has been off the anticoagulants for a couple of days. I do not think this is pressing. It may well be blood, but it is probably a reactive effusion.
--- NOTE | 2019-05-28 15:37 | Surgery Progress Note ---
Date of Service May 28, 2019 Assessment & Plan (1) Pleural effusion: -plan on performing thoracentesis on 05/29/19 -continue to hold eliquis until after procedure (2) Multiple rib fractures involving four or more ribs: -continue pain control measures -mobilize as able Subjective Pt. notes pain presently controlled. He denies SOB. Physical Exam Constitutional: well developed and well nourished; no acute distress Respiratory: normal respiratory effort; no respiratory distress and no labored breathing BS are decreased at left base Neurologic: awake, alert, and appropriate; moves all extremities Results & Data Vital Signs (Past 12 Hours) Vital Signs Temp Pulse Resp BP Pulse Ox 05/28/19 11:24 36.3 C L 60 18 121/80 97 05/28/19 07:35 36.4 C L 62 24 140/90 96 05/28/19 03:50 36.9 C 60 22 135/90 96 PG Care Time/CCT Total # of Minutes Spent Total Time Spent with Patient: Total time spent is greater than 50% in coordination of care (as documented) at patient's floor/unit and/or counseling patient:
[2019-05-28] MEDS: DIGOXIN 0.125 MG TAB PO SCH (17:11)
--- NOTE | 2019-05-28 19:41 | Hospitalist Progress Note ---
Date of Service May 28, 2019 Assessment & Plan (1) Fall: numerous falls at home per . simply loses balance - tends to fall backwards. nothing obvious precipitating these. no other features to suggest parkinson's disease. b12 level in 2018 was normal. PT, OT evals. (2) Multiple rib fractures involving four or more ribs: 2nd to fall; left sided, 9-12th ribs cont tylenol 1gm TID scheduled cont lidoderm (3) Pleural effusion: left could be small hemothorax in midst of trauma and eliquis use HOLD eliquis appreciate Dr Steen consult possible diagnostic/therapeutic thoracentesis tomorrow (4) A-fib: Holding Eliquis check digoxin level coreg had been held because of low-normal BPs can likely resume such tomorrow (5) Pacemaker: will try to find out recent interrogation date (6) Cardiac defibrillator in place: noted (7) Pulmonary hypertension: noted this likely explains JVD as he otherwise looks compensated (8) CHF (congestive heart failure): resume BB tomorrow cont lasix qod as previous appears compensated (9) Chronic renal disease: Cr stable BMP am for stability (10) Anemia: baseline Hb is 11-12 Hb today 10.7 stable (11) Stroke: History of such noted (12) DVT prophylaxis: holding Eliquis due to possible hemothorax updated at bedside today Subjective patient resting comfortably during my visit. at bedside. mild left sided back pain but able to ambulate fairly decently per . eating well. falls have been frequent at home - tends to simply lose balance and falls backwards. no prodromal symptoms, chest pain, dyspnea or palpitations preceding the fall. just had pacer interrogated a few months ago - falls were happening about that time, too. Review of Systems 2 Constitutional: no fatigue and no anorexia Respiratory: no cough and no dyspnea Cardiovascular: no chest pain Gastrointestinal: no abdominal pain Physical Exam Constitutional: + thin; no acute distress ENMT: external ear and nose normal, oropharynx normal Respiratory: no respiratory distress Auscultation: + diminished lung sounds (left base); no crackles and no wheezes Cardiovascular: Rate/Rhythm: regular rate and regular rhythm Heart Sounds: normal S1 and normal S2; no murmur Vessels: + JVD, posterior tibial pulses present and dorsalis pedis pulses present Extremities: no edema Chest (Breasts): Additional Comments: mild tenderness on left Gastrointestinal (Abdomen): normal bowel sounds, soft, nontender, no hepatosplenomegaly Skin: + ecchymosis (along left flank and left lower chest ) Psychiatric: Orientation: alert Results & Data Vital Signs (Past 12 Hours) Vital Signs Temp Pulse Pulse Resp BP Pulse Ox 05/28/19 19:22 37.0 C 60 17 125/85 96 05/28/19 17:11 69 05/28/19 15:51 36.7 C 60 20 142/86 H 96 05/28/19 15:22 93 05/28/19 11:24 36.3 C L 60 18 121/80 97 Laboratory Results Laboratory Results - last 24 hr 05/27/19 05/28/19 05/28/19 19:51 05:20 05:41 WBC 5.84 RBC 3.31 L Hgb 10.1 L 10.7 L Hct 30.5 L 31.0 L MCV 93.7 MCH 32.3 MCHC 34.5 RDW Std Deviation 46.9 H RDW Coeff of Lew 13.6 Plt Count 185 MPV 9.8 PT INR Sodium Potassium Chloride Carbon Dioxide Anion Gap BUN Creatinine Est Cr Clr Drug Dosing Est GFR ( Amer) Est GFR (Non-Af Amer) BUN/Creatinine Ratio Glucose Calcium Total Bilirubin AST ALT Alkaline Phosphatase Total Protein Albumin Globulin Albumin/Globulin Ratio Urine Color Yellow Urine Appearance Clear Urine pH 5.0 Ur Specific [place] 1.017 Urine Protein Negative Urine Glucose (UA) Negative Urine Ketones Negative Urine Blood Negative Urine Nitrite Negative Urine Bilirubin Negative Urine Urobilinogen Negative Ur Leukocyte Esterase Negative Digoxin 05/28/19 05/28/19 05/28/19 05:41 05:41 09:53 WBC RBC Hgb Hct MCV MCH MCHC RDW Std Deviation RDW Coeff of Lew Plt Count MPV PT 12.4 H INR 1.2 H Sodium 142 Potassium 4.0 Chloride 108 H Carbon Dioxide 28 Anion Gap 6.0 BUN 43 H Creatinine 1.33 Est Cr Clr Drug Dosing 38.1 Est GFR ( Amer) 54.5 Est GFR (Non-Af Amer) 47.1 BUN/Creatinine Ratio 32.6 H Glucose 85 Calcium 9.0 Total Bilirubin 1.6 H AST 30 ALT 33 Alkaline Phosphatase 138 H Total Protein 6.1 L Albumin 3.3 L Globulin 2.8 Albumin/Globulin Ratio 1.2 Urine Color Urine Appearance Urine pH Ur Specific [place] Urine Protein Urine Glucose (UA) Urine Ketones Urine Blood Urine Nitrite Urine Bilirubin Urine Urobilinogen Ur Leukocyte Esterase Digoxin 0.9 PG Care Time/CCT Total # of Minutes Spent Total Time Spent with Patient: Total time spent is greater than 50% in coordination of care (as documented) at patient's floor/unit and/or counseling patient: (1) CHF (congestive heart failure) Heart failure type: systolic Heart failure chronicity: chronic Qualified Code(s): I50.22 - Chronic systolic (congestive) heart failure (2) Anemia Anemia type: unspecified type Qualified Code(s): D64.9 - Anemia, unspecified (3) A-fib Atrial fibrillation type: unspecified Qualified Code(s): I48.91 - Unspecified atrial fibrillation (4) Chronic renal disease Chronic kidney disease stage: stage 3 (moderate) Qualified Code(s): N18.3 - Chronic kidney disease, stage 3 (moderate) (5) Fall Encounter type: initial encounter Qualified Code(s): W19.XXXA - Unspecified fall, initial encounter (6) Stroke CVA mechanism: unspecified Qualified Code(s): I63.9 - Cerebral infarction, unspecified
[2019-05-28] MEDS: ATORVASTATIN 10 MG TAB PO SCH (20:22)
[2019-05-28] MEDS: ESCITALOPRAM OXALATE 20 MG TAB PO SCH (20:22)
[2019-05-29 06:00] LABS: Hematocrit (blood only) 30.6 % (42-52); Hemoglobin 10.5 g/dL (14.0-18.0); Mean Corpuscular Hgb Conc 34.3 g/dL (32-36); Mean Corpuscular Volume 93.3 fL (80-100); Mean Platelet Volume 9.6 fL (7.4-10.4); Platelet Count 189 K/uL (130-400); RDW Coefficient of Variation 13.4 % (11.5-14.5); RDW Standard Deviation 46.3 fL (36.4-46.3); Red Blood Count 3.28 M/uL (4.7-6.1); White Blood Count 6.22 K/uL (4.8-10.8)
[2019-05-29 06:17] LABS: INR 1.2 (0.9-1.1); Prothrombin Time 12.2 Seconds (9.0-12.0)
[2019-05-29 06:34] LABS: Albumin Level 3.3 gm/dl (3.4-5.0); Calcium 9.1 mg/dl (8.5-10.1); Creatinine Clr Calc Pharmacy 40.7 ml/min; Est GFR (African American) 58.2; Est GFR (Non-African American) 50.2
[2019-05-29 06:37] LABS: Albumin Globulin Ratio 1.2 (0.9-2); Bilirubin,Total 1.6 mg/dl (0.2-1); Globulin 2.7 gm/dl (2.5-4.0)
[2019-05-29] MEDS: ACETAMINOPHEN 500 MG TAB PO SCH ×2 (07:11→17:07)
[2019-05-29] MEDS ORDERED: carvediloL 6.25 MG TAB PO SCH (09:15)
[2019-05-29] MEDS: VITAMIN B COMPLEX TAB PO SCH (09:41)
[2019-05-29] MEDS: LOSARTAN POTASSIUM 25 MG TAB PO SCH (09:41)
[2019-05-29] MEDS: LIDOCAINE 5% 1 PATCH TD SCH (09:41)
[2019-05-29] MEDS: MULTIVITAMIN TAB PO SCH (09:41)
[2019-05-29] MEDS: FUROSEMIDE 40 MG TAB PO SCH (09:41)
[2019-05-29] MEDS: CHOLECALCIFEROL 1,000 UNITS TAB PO SCH (09:41)
--- NOTE | 2019-05-29 11:04 | XRay Report ---
XR chest 1V portable HISTORY: S/P Thoracentesis COMPARISON: Chest and left rib series 05/27/2019. FINDINGS: Decrease in size in the small left pleural effusion status post thoracentesis. No pneumotho rax. The heart remains enlarged. Left-sided pacemaker/defibrillator is present. The right lung is umair ar. No evidence for pulmonary edema. Left basilar densities persist. Left-sided rib fractures are aga in noted. IMPRESSION: 1. Decrease in size in the small left pleural effusion status post thoracentesis. 2. No pneumothorax. 3. Left basilar densities persist and favor atelectasis. 4. Left-sided rib fractures are again noted. Electronically signed by: Abel Polo M.D. 05/29/2019 11:02 AM
[2019-05-29 11:33] LABS: Glucose Pleural Fluid 110 mg/dl
[2019-05-29 11:41] LABS: LDH Pleural Fluid 154 U/L; Total Protein Pleural Fluid 2.8 g/dl
[2019-05-29 12:09] LABS: Appearance Pleural Fluid BLOODY; Color Pleural Fluid RED; Mononuclear WBC Pleural 79.7 %; Polynuclear WBC Pleural 20.3 %; RBC Pleural Fluid (A) 106000 /uL; Source Pleural Fluid LEFT LUNG; WBC Pleural Fluid (A) 400 /uL
--- NOTE | 2019-05-29 12:14 | Operative Report ---
DATE OF OPERATION: 05/29/2019 PREOPERATIVE DIAGNOSES: Left fractured ribs with pleural effusion. POSTOPERATIVE DIAGNOSES: Left fractured ribs with pleural effusion. PROCEDURE: Ultrasound-guided thoracentesis. SURGEON: Lukas Steen MD. TOOL POLISHING MACHINE OPERATOR: None. ANESTHESIA: Local. SPECIFICS OF PROCEDURE: Mr. Ramos is an 88-year-old male who suffered a blunt trauma to his chest and has some rib fractures and has an effusion. He had been on an anticoagulant. We admitted him to the hospital for pain control and observation, and I came to do a thoracentesis today. I had a long talk with the patient's and the patient. Appropriate consents had been obtained. An ultrasound-guided thoracentesis was performed on the right and we drained 750 mL. DESCRIPTION OF PROCEDURE: The patient was sat in the upright position. An ultrasound was used to find an area of fluid with a good window and I marked this. He was then prepped and draped in usual sterile fashion. After appropriate timeout had been called, a 25-gauge needle with 1% Xylocaine was used to anesthetize skin and subcutaneous tissues over this area that was marked. A large bore needle was used to anesthetize the intercostal muscles and pleura and then we got some pinkish fluid that was freely drained. A guidewire was inserted through the needle and the needle removed. A triple-lumen catheter was slid over the guidewire and the guidewire removed. 750 mL of a bloody non-clotting fluid was drained. It was more serous than blood. He tolerated it well. We drained it completely dry. I removed the catheter and he had a small amount of skin bleeding, so I put a single 3-0 silk suture. Antimicrobial dressing was placed. Chest x-ray is pending. He tolerated it very well. I attest to the content of the Intraoperative Record and any orders documented therein. Any exception s are noted below.
[2019-05-29] MEDS: DIGOXIN 0.125 MG TAB PO SCH (18:06)
--- NOTE | 2019-05-29 18:23 | Discharge Summary ---
Date of Service date of admission - May 27, 2019 date of discharge - May 29, 2019 Admission HPI Per Admitting Provider This is an 88 yo M with PMhx of afib with eliquis, frequent falls, hx of stroke, anemia, chronic systolic CHF, pulmonary hypertension, pacemaker/AICD, CKD stage 3, who presents after recent falls where he sustained left sided 9-12th rib fractures and thoracic vertebrae fx at T10 and T11. He has fallen multiple times including 7 days ago, 5 days ago, and yesterday. Pts is present at bedside and supports the hx. He reports his pain is well controlled, and actually does not have pain at rest. He denies falls with hitting his head of LOC yesterday, but admits to hitting his head last week. He has not had any issues with dizziness, lightheadedness, or visual disturbances. He uses a walker at all times in his home. Pt denies any other acute complaints, and reports that he wanted to go home, but his is making him stay. Principal Diagnosis recurrent falls resulting in multiple left-sided rib fractures, left-sided hemothorax, and thoracic transverse fractures Discharge Exam Constitutional + thin; no acute distress ENMT external ear and nose normal, oropharynx normal Respiratory no respiratory distress Auscultation: + diminished lung sounds (left base); no crackles and no wheezes Cardiovascular Rate/Rhythm: regular rate and regular rhythm Heart Sounds: normal S1 and normal S2; no murmur Vessels: + JVD, posterior tibial pulses present and dorsalis pedis pulses present Extremities: no edema Chest (Breasts) Additional Comments: mildly tender to left posterior chest wall with palpation Gastrointestinal (Abdomen) normal bowel sounds, soft, nontender, no hepatosplenomegaly Skin + ecchymosis (along left flank and left lower chest ) Psychiatric Orientation: alert, oriented to person and oriented to place; + not oriented to time Discharge Data Allergies Allergy/AdvReac Type Severity Reaction Status Date / Time donepezil [From Aricept] AdvReac Mild Diarrhea Unverified 06/03/19 13:55 Consultations thoracic surgery - Lukas Steen MD PT, OT Procedures Performed left-sided thoracentesis -- Dr Lukas Steen * 750cc of bloody fluid * no complications Ordered Studies 1. CT head: FINDINGS: No acute intracranial hemorrhage, midline shift, intracranial mass, hydrocephalus, territorial ischemia or abnormal extra-axial collection. Age- related involutional changes with ex vacuo ventriculomegaly. Remote infarct in the left lentiform and caudate nuclear distributions with associated encephalomalacia and ex vacuo changes of the frontal horn left lateral ventricle, unchanged. Patchy white matter hypodensities suggest chronic microvascular ischemic disease. Cerebral vascular calcifications are noted. 2. CT abd pelvis: IMPRESSION: 1. Multiple acute displaced left-sided rib fractures with partially imaged left hemothorax. Additionally, there are acute mildly displaced fractures involving the left T10 and T11 transverse processes. 2. No evidence of acute solid organ injury, pneumatosis or pneumoperitoneum. 3. Prostamegaly with findings suggestive of chronic urinary bladder outlet obstruction. 4. Fecal retention with large stool ball of the rectum. 5. Marked cardiomegaly. 6. Multiple healing subacute appearing right-sided rib fractures. 3. CT cervical spine - no fractures. 4. CT chest - IMPRESSION: 1. Acute fractures of the left ninth, 10th, 11th, 12th ribs 2. [id number] left pleural effusion with associated left lower lobe c ompressive atelectasis 3. No evidence of pneumothorax 4. No evidence of mediastinal injury 5. Thoracic aortic aneurysm. Hospital Course (1) Fall: Numerous falls at home per - a chronic issue, but worse in the last few weeks. Simply loses balance - tends to fall backwards. Nothing obvious precipitating these; no prodromal symptoms such as dizziness, lightheadedness, chest discomfort, etc. No other features to suggest parkinson's disease. B12 level in 2018 was normal. Recent pacemaker interrogation - no dysrhythmia as cause of falls. Telemetry was normal while hospitalized. PT, OT evals were completed - rehab advised. refused such on behalf of patient (he has dementia thus she makes medical decisions for him). felt that patient's ambulation was at baseline. She provides 24/ supervision. Advised, at minimum, PT/OT home evals for safety after discharge. (2) Multiple rib fractures involving four or more ribs: 2nd to fall; left sided, 9-12th ribs cont tylenol 1gm TID scheduled cont lidoderm heating pad seen by Dr Steen - no Rx needed other than pain control (3) Pleural effusion: left moderate hemothorax in midst of trauma and chronic eliquis use Eliquis was held while hospitalized, and at discharge it was HELD as well Dr Steen performed diagnostic/therapeutic thoracentesis removing 750cc of bloody fluid post-tap chest x-ray showed significant left-sided improvement Dr Steen will see the patient in his office within 1-2 weeks post-discharge (4) Fracture of thoracic transverse process: T10 T11 minimal pain from such lidoderm patches, tylenol, heating pad (5) A-fib: Holding Eliquis at discharge due to frequent falls, the recent hemothorax, etc digoxin level this admission was normal coreg had been held because of low-normal BPs but it was resumed at discharge (6) Pacemaker: recent interrogation in the office had been normal (7) Cardiac defibrillator in place: (8) Pulmonary hypertension: noted this likely explains JVD as he otherwise looks compensated (9) CHF (congestive heart failure): cont coreg cont lasix qod as previous compensated during the hospitalization (10) Chronic renal disease: Cr stable at 1.2 / 1.3 during the hospitalization CKD stage 3 at baseline (11) Anemia: baseline Hb is 11-12 Hb 10.5 on day of discharge (12) Stroke: History of such Total Time Total Time Spent Total Time Spent (In Minutes): 40 Total Time Includes: Examination of the Patient, Discharge Planning, Medication Reconciliation and Communication With Other Providers Discharge Plan Discharge Items Patient Disposition: Home - Self-Care Reason For Visit: FALL, Left RIB FRACTURES, Fractures of Spine Discharge Diagnosis: 1. multiple left-sided rib fractures 2. two fractures of the thoracic spine 3. bloody pleural effusion (collection of bloody fluid in the left chest cavity) Goals: 1. treat any pain 2. remove the fluid from left chest cavity Activity: As commented below Activity Comment: avoid any activity that makes rib or spine pain worse Non-emergency contact: Primary Care Provider Call non-emergency contact if: you have any medication questions, your symptoms worsen, your pain is not controlled, your pain is worsening, your pain is unusual for you, your pain is concerning for you and you have a fever Follow-up/Referrals: Ismael Villagran MD [Primary Care Provider] - (see Dr Villagran early this week ) Michoacano Villaseñor MD [Physician] - (see Dr Villaseñor in 1-2 weeks to discuss benefits/risks of resuming blood thinning medication ) Lukas Steen MD, FACS [Surgeon] - (see Dr Steen - thoracic surgery - within 2 weeks ) Diet: Heart Healthy Diet Texture: Dental soft (bite-sized) Addtl Attending Provider Instructions: You were treated for (4) left-sided rib fractures, a pocket of bloody fluid in the left chest, and (2) minor fractures of the thoracic spine. The latter is the middle portion of the back. The rib fractures and thoracic spine fractures will heal on their own - usually within 6-8 weeks. The fluid was drained by Dr Lukas Steen. The fluid was bloody due to the trauma of the fall and due to blood thinner use. Your vital signs remained stable during the visit. Recommendations: 1. STOP your eliquis blood thinner. Stopping the blood thinner was discussed with Dr Villaseñor your vocational rehabilitation administrator. 2. For pain - * take tylenol 1000mg three times a day for about 7-10 days for pain control of the rib and spine fractures * may use lidoderm patches - up to 3 at a time - for 12 hours then remove for 12 hours * may use heating pad if desired 3. The dressing that is on from your procedure today (draining of chest fluid) - you can remove this on Saturday morning. After that you can place a band-aid on the area for another 2-3 days. 4. INCREASE your vitamin D to 2000 units every day to help promote healing of your ribs and spine. 5. Physical therapy highly recommended inpatient rehab after this hospital stay. Your has elected to bring you home as she felt you were at your normal physical baseline. I would recommend at the very least a home safety evaluation by PT and OT. We can set this up for you. 6. If the falls become a regular issue and it is hard to live independently please consider looking into assisted living communities. These allow you to continue living independently in your own apartment but you would have access to more help, nurses, etc if needed. [facility] can provide you with a list of these communities if desired. 7. Please use your walker at ALL TIMES when ambulating/walking. Follow-up -- see separate section Return to [facility] if -- * you have fevers over 100.5 degrees * you have worsening pain that is not responding to the patches, tylenol, etc * you have worsening falls with injuries * you have chest pain or shortness of breath * any other concerns Pending Studies at Discharge: Yes Studies:: studies from fluid removed from chest cavity Stand-Alone Forms: My [facility] Medications and DC Order Prescriptions: New acetaminophen [Tylenol Extra Strength] 500 mg Tablet 1,000 mg PO Q8H Qty: 30 RF: 0 Continued cyclosporine 0.05 % drops 1 drops OP Q12H Qty: 5.5 RF: 3 furosemide [Lasix] 40 mg tablet 40 mg PO Q OTHER DAY RF: 0 multivitamin Tablet 1 tab PO QAM RF: 0 carvedilol [Coreg] 25 mg tablet 12.5 mg PO BID RF: 0 atorvastatin [Lipitor] 10 mg tablet 10 mg PO HS RF: 0 vitamin B complex Tablet 1 tab PO DAILY RF: 0 digoxin [Digitek] 125 mcg tablet 125 mcg PO DAILY RF: 0 escitalopram oxalate [Lexapro] 20 mg tablet 20 mg PO HS RF: 0 memantine [Namenda XR] 28 mg capsule,sprinkle,ER 24hr 28 mg PO HS RF: 0 Changed cholecalciferol (vitamin D3) [Vitamin D3] 1,000 unit Capsule 2,000 unit PO DAILY Qty: 0 RF: 0 Discontinued apixaban 5 mg tablet 5 mg PO BID RF: 0 No Action Aspercreme (lidocaine) 4 % adhesive patch,medicated 1 patch TOP DAILY PRNRF: 0 Discharge Orders: Discharge Order (Routine); Ordered 05/29/19 Ordered By: Arturo Alexander Admission Data Admit Date/Time: 05/27/19 13:33 Attending Provider: Arturo Alexander Admit Provider: Mary Garcia Primary Care Provider: Ismael Villagran Other Providers: Lukas Steen ; Mary Garcia Other Interventions: Discharge Summary Assessment (RN) Last Done: 05/29/19 18:36 DC Date/Time DO NOT enter until pt leaves facility: 05/29/19 19:28
== END 2019-05-29 19:28 | disposition home or self-care (01) | DRG 183 ==
LOC: ED 09:20 → 2E 13:33 → SUATTDRO 13:33 → 2E 14:44